=== PATIENT | male | born 1955 | race Caucasian/White ===

== ENCOUNTER 2016-12-22 11:11 | Inpatient (IN) | payer OTHER ==
[2016-12-22] VITALS (13 sets, daily range): BP systolic 123–146; BP diastolic 64–76; PULSE 84–99; RESP 17–20; TEMP 97.6–98.3; O2SAT 91–98
[~2016-12-22] VITALS: Ht 177.8 cm; Wt 114.4 kg
[~2016-12-22 11:11] MED LIST: 1-ME1LIQ PO; ASPI81TA82 PO; ATOR80TA PO; HYDR-2768 PO; LEVO.025 PO; OMEP20TA39 PO; POTA10TA48 PO; PRAZ5CAP16 PO; TAB-TAB PO; TRAZ100 PO; VENL-39 PO
[2016-12-22] MEDS ORDERED: ONDANSETRON HCL 4 MG/2 ML VIAL IV PUSH ONE (11:30)
[2016-12-22] MEDS: SODIUM CHLOR 0.9% 1000 ML INJ 1,000 ML IV SCH ×5 (11:36→22:14)
--- NOTE | 2016-12-22 11:53 | PD ---
HPI Chief Complaint: OD/ Ingestion Time Seen by Provider: 11:24 Travel History International Travel<30 days: No Contact w/Intl Traveler<30days: No Traveled to known affect area: No History of Present Illness HPI 61-year-old male was brought in by EMS after intentional overdose on trazodone. Patient states that he is feeling suicidal. Patient states that he took about 20 pills of trazodone 10 mg each this morning. Patient's unable to tell me how long before arriving to the ED that he took the medications. Patient complains of headache. Patient denies any chest pain or shortness of breath. Patient denies abdominal pain. Patient denies any focal weakness or numbness of extremity. Patient admitted to cocaine and amphetamine abuse occasionally. Patient states that he drinks alcohol occasionally. Patient states that he is on other medications however unable to tell me the names of the medications he is on at home. According to past medical record, patient was on aspirin, atorvastatin, HCTZ,Levothyroxine, omeprazole, potassium, prazosin, trazodone, venlafaxine. PFSH Past Medical History Hx Anticoagulant Therapy: Yes Cardiovascular Problems: Yes Diminished Hearing: No Social History Alcohol Use: Yes (WEEKLY) Tobacco Use: Yes (1.5) Substance Use: No Allergies-Medications (Allergen,Severity, Reaction): Coded Allergies: Codeine (Verified Adverse Reaction, Severe, Nausea/Vomiting, 12/22/16) Reported Meds & Prescriptions Reported Meds & Active Scripts Active Reported Effexor (Venlafaxine HCl) 75 Mg Tab 150 Mg PO DAILY Trazodone (Trazodone HCl) 100 Mg Tab 150 Mg PO HS Prazosin (Prazosin HCl) 5 Mg Cap 10 Mg PO HS Potassium Chloride ER (Potassium Chloride) 10 Meq Tab 10 Meq PO DAILY Omeprazole 20 Mg Tab 20 Mg PO DAILY Multi Vitamin (Multiple Vitamin) 1 Tab Tab 1 Tab PO DAILY Levothyroxine (Levothyroxine Sodium) 25 Mcg Tab 25 Mcg PO DAILY Atrovent HFA 12.9 GM Inh (Ipratropium [place]) 17 Mcg/Act Aer 2 Puff INH BID Hydrochlorothiazide 50 Mg Tab 50 Mg PO DAILY Clonidine (Clonidine HCl) 0.1 Mg Tab 0.1 Mg PO TID Symbicort Inh (Budesonide/Formoterol Fumarate) 160-4.5 Mcg/Act Aero 2 Puff INH BID Atorvastatin (Atorvastatin Calcium) 80 Mg Tab 80 Mg PO HS Aspirin EC Low Dose (Aspirin) 81 Mg Tabec 81 Mg PO DAILY Amlodipine (Amlodipine Besylate) 10 Mg Tab 10 Mg PO DAILY Review of Systems General / Constitutional: No: Fever Eyes: No: Visual changes HENT: Positive: Headaches Cardiovascular: No: Chest Pain or Discomfort Respiratory: No: Shortness of Breath Gastrointestinal: No: Abdominal Pain Genitourinary: No: Dysuria Musculoskeletal: No: Pain Skin: No Rash Neurologic: No: Weakness Psychiatric: No: Depression Endocrine: No: Polydipsia Hematologic/Lymphatic: No: Easy Bruising Physical Exam Narrative GENERAL: Well-nourished, well-developed patient. SKIN: Warm and dry. HEAD: Normocephalic. EYES: No scleral icterus. No injection or drainage. NECK: Supple, trachea midline. No JVD or lymphadenopathy. CARDIOVASCULAR: Regular rate and rhythm without murmurs, gallops, or rubs. RESPIRATORY: Breath sounds equal bilaterally. No accessory muscle use. GASTROINTESTINAL: Abdomen soft, non-tender, nondistended. MUSCULOSKELETAL: No cyanosis, or edema. BACK: Nontender without obvious deformity. No CVA tenderness. Neurologic exam: Patient is lethargic however answer questions appropriately. Patient moves all extremity well. No obvious focal neurological deficit. Data Data Last Documented VS Vital Signs Date Time Temp Pulse Resp B/P Pulse Ox O2 Delivery O2 Flow Rate FiO2 12/22/16 11:51 84 18 137/73 97 Nasal Cannula 3 12/22/16 11:18 97.8 Orders Electrocardiogram (12/22/16 ) Complete Blood Count With Diff (12/22/16 11:24) Comprehensive Metabolic Panel (12/22/16 11:24) Creatine Kinase (Cpk) (12/22/16 11:24) Troponin I (12/22/16 11:24) Prothrombin Time / Inr (Pt) (12/22/16 11:24) Act Partial Throm Time (Ptt) (12/22/16 11:24) Arterial Blood Gas (Abg) (12/22/16 11:24) Urinalysis - C+S If Indicated (12/22/16 11:24) Thyroid Stimulating Hormone (12/22/16 11:24) Chest, Single Ap (12/22/16 11:24) Iv Access Insert/Monitor (12/22/16 11:24) Ecg Monitoring (12/22/16 11:24) Oxygen Administration (12/22/16 11:24) Oximetry (12/22/16 11:24) Urinary Catheter Insert/Apply (12/22/16 11:24) Drug Screen, Random Urine (12/22/16 11:24) Alcohol (Ethanol) (12/22/16 11:24) Salicylates (Aspirin) (12/22/16 11:24) Tylenol (Acetaminophen) (12/22/16 11:24) Sodium Chlor 0.9% 1000 Ml Inj (Ns 1000 M (12/22/16 11:30) Ondansetron Inj (Zofran Inj) (12/22/16 11:30) Electrocardiogram (12/22/16 ) Labs Laboratory Tests Test 12/22/16 12/22/16 12/22/16 11:31 11:35 11:55 Salicylates Level 2.8 MG/DL White Blood Count 11.6 TH/MM3 Red Blood Count 4.91 MIL/MM3 Hemoglobin 15.8 GM/DL Hematocrit 45.0 % Mean Corpuscular Volume 91.6 FL Mean Corpuscular Hemoglobin 32.1 PG Mean Corpuscular Hemoglobin 35.0 % Concent Red Cell Distribution Width 13.2 % Platelet Count 224 TH/MM3 Mean Platelet Volume 8.3 FL Neutrophils (%) (Auto) 73.4 % Lymphocytes (%) (Auto) 19.1 % Monocytes (%) (Auto) 7.0 % Eosinophils (%) (Auto) 0.2 % Basophils (%) (Auto) 0.3 % Neutrophils # (Auto) 8.5 TH/MM3 Lymphocytes # (Auto) 2.2 TH/MM3 Monocytes # (Auto) 0.8 TH/MM3 Eosinophils # (Auto) 0.0 TH/MM3 Basophils # (Auto) 0.0 TH/MM3 CBC Comment DIFF FINAL Differential Comment Prothrombin Time 11.5 SEC Prothromb Time International 1.0 RATIO Ratio Activated Partial 26.4 SEC Thromboplast Time Urine Color YELLOW Urine Turbidity CLEAR Urine pH 5.5 Urine Specific Waves 1.013 Urine Protein 100 mg/dL Urine Glucose (UA) NEG mg/dL Urine Ketones NEG mg/dL Urine Occult Blood NEG Urine Nitrite NEG Urine Bilirubin NEG Urine Urobilinogen LESS THAN 2.0 MG/DL Urine Leukocyte Esterase NEG Urine WBC LESS THAN 1 /hpf Urine Amorphous Sediment OCC Urine Bacteria OCC /hpf Microscopic Urinalysis Comment CULT NOT INDICATED Sodium Level 141 MEQ/L Potassium Level 3.4 MEQ/L Chloride Level 106 MEQ/L Carbon Dioxide Level 25.3 MEQ/L Anion Gap 10 MEQ/L Blood Urea Nitrogen 16 MG/DL Creatinine 1.31 MG/DL Estimat Glomerular Filtration 56 ML/MIN Rate Random Glucose 139 MG/DL Calcium Level 8.3 MG/DL Total Bilirubin 0.7 MG/DL Aspartate Amino Transf 15 U/L (AST/SGOT) Alanine Aminotransferase 67 U/L (ALT/SGPT) Alkaline Phosphatase 57 U/L Total Creatine Kinase 52 U/L Troponin I LESS THAN 0.02 NG/ML Total Protein 7.0 GM/DL Albumin 3.8 GM/DL Thyroid Stimulating Hormone 3.470 uIU/ML 3rd Gen Urine Opiates Screen NEG Acetaminophen Level LESS THAN 2.0 MCG/ML Urine Barbiturates Screen NEG Urine Amphetamines Screen NEG Urine Benzodiazepines Screen NEG Urine Cocaine Screen POS Urine Cannabinoids Screen NEG Ethyl Alcohol Level LESS THAN 3 MG/DL Blood Gas Puncture Site RT RADIAL Blood Gas Patient Temperature 98.6 Blood Gas HCO3 23 mmol/L Blood Gas Base Excess -1.6 mmol/L Blood Gas Oxygen Saturation 83 % Arterial Blood pH 7.34 Arterial Blood Partial 44 mmHg Pressure CO2 Arterial Blood Partial 74 mmHG Pressure O2 Arterial Blood Oxygen Content 17.7 Vol % Arterial Blood 10.4 % Carboxyhemoglobin Arterial Blood Methemoglobin 2.2 % Blood Gas Hemoglobin 15.2 G/DL Oxygen Delivery Device NASAL CANNULA Blood Gas Liter Flow 2 L/M Blood Gas Ventilator Setting MDM Medical Decision Making Medical Screen Exam Complete: Yes Emergency Medical Condition: Yes Interpretation(s) 11:57 AM. EKG shows sinus rhythm nonspecific ST-T wave change. Last Impressions Chest X-Ray 12/22/16 1124 Signed Impressions: Service Date/Time: Thursday, December 22, 2016 11:47 - CONCLUSION: 1. Faint airspace disease in the medial aspect of both lung bases is nonspecific but could represent an element of aspiration.. 2. Borderline, well compensated heart. Pedrito Mcallister MD 1334 PM. CBC within normal limit. WBC 11.6. 73 neutrophil. Potassium 3.4. Creatinine 1.31. Glucose 139. Cardiac enzymes are normal. TSH normal. Salicylate and acetaminophen level normal. Urine drug screen positive for cocaine. Alcohol negative. Differential Diagnosis Differential diagnosis including suicidal, drug overdose. Narrative Course 61-year-old male was brought him EMS for suicidal and drug overdose. Patient overdose on trazodone. Normal saline solution 125 cc an hour. Castro catheter inserted. hospital monitor. 1346 PM. Poison control contacted. Advised symptomatically treatment. Diagnosis Primary Impression: Drug overdose, intentional Qualified Code: T50.902A - Drug overdose, intentional, initial encounter Additional Impressions: Suicidal behavior with attempted self-injury Substance abuse Admitting Information Admitting Physician Requests: Admit Adrien Patterson MD Dec 22, 2016 11:53
[2016-12-22 12:03] LABS: BLOOD GAS BASE EXCESS -1.6 mmol/L (-2-2); BLOOD GAS CARBOXYHEMOGLOBIN 10.4 % (0-4); BLOOD GAS HCO3 23 mmol/L (22-26); BLOOD GAS METHEMOGLOBIN 2.2 % (0-2); BLOOD GAS O2 HGB SATURATION 83 % (90-100); BLOOD GAS OXYGEN CONTENT 17.7 Vol % (12.0-20.0); BLOOD GAS PCO2 44 mmHg (38-42); BLOOD GAS PO2 74 mmHG (61-120); BLOOD GAS TOTAL HGB 15.2 G/DL (12.0-16.0); CRITICAL VALUE YES; OXYGEN DEVICE NASAL CANNULA; TEMP CORR TO 98.6
[2016-12-22 12:03] LABS: AUTOMATED NEUTROPHIL # 8.5 TH/MM3 (1.8-7.7); BASOPHIL % 0.3 % (0.0-2.0); EOSINOPHIL % 0.2 % (0.0-4.0); HEMO FLAGS DIFF FINAL; LYMPH % 19.1 % (9.0-44.0); LYMPHOCYTE # 2.2 TH/MM3 (1.0-4.8); MEAN CELL VOLUME 91.6 FL (80.0-100.0); MEAN CORPUSCULAR HEMOGLOBIN 32.1 PG (27.0-34.0); NEUT % 73.4 % (16.0-70.0); PLATELET COUNT 224 TH/MM3 (150-450); RED BLOOD COUNT 4.91 MIL/MM3 (4.50-5.90); RED CELL DISTRIBUTION WIDTH 13.2 % (11.6-17.2); WHITE BLOOD COUNT 11.6 TH/MM3 (4.0-11.0)
[2016-12-22 12:04] LABS: DRAW SITE RT RADIAL; LITER FLOW 2 L/M; NUMBER OF ARTERIAL PUNCTURES 1; STAT YES; ULNAR PULSE Y
[2016-12-22 12:07] LABS: BACTERIA, URINE OCC /hpf; BLOOD, URINE NEG (NEG); COMMENT (UR) CULT NOT INDICATED; CULTURE IF INDICATED CULT NOT INDICATED; GLUCOSE,URINE NEG (NEG); KETONE, URINE NEG (NEG); NITRITE,URINE NEG (NEG); PH, URINE 5.5 (5.0-8.5); URINE COLOR YELLOW (YELLW/STRAW)
[2016-12-22 12:11] LABS: APTT (PATIENT) 26.4 SEC (24.3-30.1); PROTHROMBIN TIME - PATIENT 11.5 SEC (9.8-11.6)
[2016-12-22 12:12] LABS: AMPHETAMINE, URINE NEG (NEG); BARBITURATES, URINE NEG (NEG); COCAINE, URINE POS (NEG)
--- NOTE | 2016-12-22 12:17 | RADRPT ---
EXAM DATE/TIME: 12/22/2016 11:47 [facility] COMPARISON: No previous studies available for comparison. INDICATIONS : Short of breath, lethargic MEDICAL HISTORY : unobtainable SURGICAL HISTORY : unobtainable ENCOUNTER: Initial ACUITY: 1 day PAIN SCORE: Non-responsive. LOCATION: Bilateral chest FINDINGS: A single view of the chest demonstrates faint patchy airspace process medially in both bases. Finding s are nonspecific but could represent some aspiration. No associated effusions. Heart size is borderl ine prominent a well compensated. Dextroscoliosis of the dorsal spine with minimal associated degener ative changes. CONCLUSION: 1. Faint airspace disease in the medial aspect of both lung bases is nonspecific but could represent an element of aspiration.. 2. Borderline, well compensated heart. Pedrito Mcallister MD on December 22, 2016 at 12:11 Board Certified Radiologist. This report was verified electronically.
[2016-12-22 12:18] LABS: ACETAMINOPHEN LESS THAN 2.0 MCG/ML (10.0-30.0); ALT (GPT) 67 U/L (12-78); ANION GAP 10 MEQ/L (5-15); AST (GOT) 15 U/L (15-37); BICARBONATE 25.3 MEQ/L (21.0-32.0); BLOOD UREA NITROGEN 16 MG/DL (7-18); CHLORIDE 106 MEQ/L (98-107); GLOMERULAR FILTRATION RATE 56 ML/MIN (>89); POTASSIUM 3.4 MEQ/L (3.5-5.1); SODIUM (NA) 141 MEQ/L (136-145)
[2016-12-22 12:27] LABS: ALKALINE PHOSPHATASE 57 U/L (45-117); TOTAL BILIRUBIN ADULT 0.7 MG/DL (0.2-1.0)
[2016-12-22 12:28] LABS: CREATINE KINASE 52 U/L (39-308)
[2016-12-22] MEDS ORDERED: HYDR50TA3 PO (12:37)
[2016-12-22] MEDS ORDERED: PRAZ5CAP PO (12:37)
[2016-12-22] MEDS ORDERED: OMEP20TA PO (12:37)
[2016-12-22] MEDS ORDERED: IPRA17I INH (12:37)
[2016-12-22] MEDS ORDERED: LEVO25TA4 PO (12:37)
[2016-12-22] MEDS ORDERED: AMLO10TA2 PO (12:37)
[2016-12-22] MEDS ORDERED: TRAZ100T4 PO (12:37)
[2016-12-22] MEDS ORDERED: SYMB160A INH (12:37)
[2016-12-22] MEDS ORDERED: VENL75TA PO (12:37)
[2016-12-22] MEDS ORDERED: CLON0.1T PO (12:37)
[2016-12-22] MEDS ORDERED: POTA10TA2 PO (12:37)
[2016-12-22] MEDS ORDERED: ATOR1TAB18 PO (12:37)
[2016-12-22] MEDS ORDERED: MULT-135 PO (12:37)
[2016-12-22] MEDS ORDERED: ASPI81TA2 PO (12:37)
[2016-12-22] MEDS ORDERED: ONDANSETRON HCL 4 MG/2 ML VIAL IVP PRN (14:30)
[2016-12-22] MEDS ORDERED: ACETAMINOPHEN 325 MG TAB PO PRN ×3 (14:30→14:45)
[2016-12-22] MEDS ORDERED: SENNOSIDES 8.6 MG TAB PO PRN (14:30)
[2016-12-22] MEDS ORDERED: VANCOMYCIN INJ 1,000 MG in SODIUM CHLOR 0.9% 250 ML INJ 250 ML IV ONE (14:30)
[2016-12-22] MEDS ORDERED: BISACODYL 10 MG SUPP PR PRN (14:30)
[2016-12-22] MEDS ORDERED: RESP: ALBUTEROL 0.63 MG/3 ML NEB (PRN) NEB (14:30)
[2016-12-22] MEDS ORDERED: NALOXONE HCL 0.4 MG/ML AMP IV PRN (14:30)
[2016-12-22] MEDS ORDERED: SODIUM CHLORIDE 0.9% FLUSH 5 ML FLUSH FLUSH PRN (14:30)
[2016-12-22] MEDS ORDERED: cloNIDine HCL 0.1 MG TAB PO PRN (14:30)
[2016-12-22] MEDS ORDERED: SODIUM CHLORIDE 0.9% FLUSH 5 ML FLUSH IVF PRN (14:45)
[2016-12-22] MEDS ORDERED: ONDANSETRON HCL 4 MG/2 ML VIAL IV PRN (14:45)
[2016-12-22] MEDS ORDERED: POTASSIUM CHLORIDE 10 MEQ CONTROLLED RELEASE TAB PO ONE (15:00)
[2016-12-22] MEDS: DOCUSATE SODIUM 100 MG CAP PO SCH ×2 (15:06→23:45)
[2016-12-22] MEDS: HEPARIN SODIUM - SQ 10,000 UNITS/ML VIAL SQ SCH (15:06)
[2016-12-22] MEDS: RESP: ALBUTEROL 2.5 MG/IPRATROPIUM 0.5 MG NEB (SCH) NEB ×2 (15:26→20:00)
[2016-12-22] MEDS: methylPREDNISolone SOD SUCC 40 MG/1 ML VIAL IV PUSH SCH ×2 (16:08→23:20)
--- NOTE | 2016-12-22 16:37 | HHI.HP ---
HPI Service [facility] Primary Care Physician [facility] Admission Diagnosis drug overdose. suicidal Diagnoses: Chief Complaint: Drug Overdose, SOB Travel History International Travel<30 Days: No Contact w/Intl Traveler <30 Da: No Traveled to Known Affected Are: No History of Present Illness Patient is a 61-year-old white male with primary medical history of PTSD, COPD, HTN, HLD, hypothyroidism who came in under Zepeda act after he intentionally took 20 pills of trazodone 100 mg this morning. Complaints of shortness of breath, exacerbated with exertion. Reports history of COPD with use of inhalers at home including Symbicort, Advair. O2 sat on the monitor 89-90% on room air. Otherwise, denies pain and discomfort. Denies chest pain, palpitations, headaches, dizziness. Denies fevers, chills, n/v/d. Denies suicidal ideation, reports wanting to get better. Chest x-ray showed faint airspace disease in the medial aspect of both lung bases is nonspecific but could represent an element of aspiration. Borderline, well compensated heart. WBC 11.6. Patient was given Vanco 1 g in the ED. Review of Systems Except as stated in HPI: all other systems reviewed are Neg Past Family Social History Past Medical History PTSD COPD HTN HLD Hypothyroidism Past Surgical History Hernia repair Reported Medications Effexor (Venlafaxine HCl) 75 Mg Tab 150 Mg PO DAILY Trazodone (Trazodone HCl) 100 Mg Tab 150 Mg PO HS Prazosin (Prazosin HCl) 5 Mg Cap 10 Mg PO HS Potassium Chloride ER (Potassium Chloride) 10 Meq Tab 10 Meq PO DAILY Omeprazole 20 Mg Tab 20 Mg PO DAILY Multi Vitamin (Multiple Vitamin) 1 Tab Tab 1 Tab PO DAILY Levothyroxine (Levothyroxine Sodium) 25 Mcg Tab 25 Mcg PO DAILY Atrovent HFA 12.9 GM Inh (Ipratropium [place]) 17 Mcg/Act Aer 2 Puff INH BID Hydrochlorothiazide 50 Mg Tab 50 Mg PO DAILY Clonidine (Clonidine HCl) 0.1 Mg Tab 0.1 Mg PO TID Symbicort Inh (Budesonide/Formoterol Fumarate) 160-4.5 Mcg/Act Aero 2 Puff INH BID Atorvastatin (Atorvastatin Calcium) 80 Mg Tab 80 Mg PO HS Aspirin EC Low Dose (Aspirin) 81 Mg Tabec 81 Mg PO DAILY Amlodipine (Amlodipine Besylate) 10 Mg Tab 10 Mg PO DAILY Allergies: Coded Allergies: Codeine (Verified Adverse Reaction, Severe, Nausea/Vomiting, 12/22/16) Active Ordered Medications Current Medications Medications (Trade) Dose Ordered Sig/Anshu Route Start Time Stop Time Status Last Admin Sodium Chloride 1,000 ml @ 125 mls/hr Q8H IV 12/22/16 11:30 12/22/16 11:36 (NS 1000 ml Inj) 1,000 ml @ 100 mls/hr Q10H IV 12/22/16 15:00 12/22/16 15:05 (NS Flush) 2 ml UNSCH PRN FLUSH 12/22/16 14:30 (NS Flush) 2 ml BID FLUSH 12/22/16 21:00 (Tylenol) 650 mg Q4H PRN PO 12/22/16 14:30 (Zofran Inj) 4 mg Q6H PRN IVP 12/22/16 14:30 (Dulcolax Supp) 10 mg DAILY PRN RI 12/22/16 14:30 (Colace) 100 mg Q12H PO 12/22/16 15:00 12/22/16 15:06 (Senokot) 17.2 mg Q12H PRN PO 12/22/16 14:30 (Heparin Inj) 5,000 units Q12H SQ 12/22/16 15:00 12/22/16 15:06 (Tylenol) 650 mg Q6H PRN PO 12/22/16 14:30 (Narcan Inj) 0.4 mg UNSCH PRN IV 12/22/16 14:30 (Ecotrin Ec) 81 mg DAILY PO 12/23/16 09:00 (Lipitor) 80 mg HS PO 12/22/16 21:00 (Symbicort 160-4.5 Inh) 2 puff BID INH 12/22/16 21:00 (Catapres) 0.1 mg TID PO 12/22/16 18:00 (Synthroid) 25 mcg DAILY@06 PO 12/23/16 06:00 (Protonix) 20 mg DAILY PO 12/23/16 09:00 (Catapres) 0.1 mg Q6H PRN PO 12/22/16 14:30 (SoluMEDROL INJ) 40 mg Q8H IV PUSH 12/22/16 16:00 Family History Lung cancer and lymphoma Social History Alcohol use weekly. Tobacco use half a pack a day Substance abuse cocaine, amphetamine when he feels "depressed" Physical Exam Vital Signs Vital Signs Date Time Temp Pulse Resp B/P Pulse Ox O2 Delivery O2 Flow Rate FiO2 12/22/16 15:28 94 12/22/16 15:00 98.0 89 18 135/76 97 Nasal Cannula 3 12/22/16 14:00 98.0 92 18 141/71 98 Nasal Cannula 3 12/22/16 13:00 94 18 133/67 97 Nasal Cannula 3 12/22/16 11:51 84 18 137/73 97 Nasal Cannula 3 12/22/16 11:26 97 Nasal Cannula 3 12/22/16 11:26 20 97 Nasal Cannula 3 12/22/16 11:18 84 20 97 Nasal Cannula 3 12/22/16 11:18 97.8 96 20 146/65 96 Physical Exam GENERAL: This is a well-nourished, well-developed patient, in no apparent distress, mildly short of breath. SKIN: No rashes, ecchymoses or lesions. Cool and dry. HEAD: Atraumatic. Normocephalic. No temporal or scalp tenderness. EYES: Pupils equal round and reactive. Extraocular motions intact. No scleral icterus. No injection or drainage. ENT: Nose without bleeding. Throat without erythema. Uvula midline. Airway patent. NECK: Trachea midline. No JVD or lymphadenopathy. Supple, nontender, no meningeal signs. CARDIOVASCULAR: Regular rate and rhythm without murmurs, gallops, or rubs. RESPIRATORY: Diminished bases. No wheezes, rales, or rhonchi. Notable shortness of breath with increased conversation length. GASTROINTESTINAL: Abdomen soft, non-tender, nondistended. No hepato-splenomegaly , or palpable masses. No guarding. MUSCULOSKELETAL: Extremities without clubbing, cyanosis, or edema. No joint tenderness, effusion, or edema noted. No calf tenderness. Negative Homans sign bilaterally. NEUROLOGICAL: Awake and alert. Oriented 3. Motor and sensory grossly within normal limits. No focal neuro deficit. Normal speech. Laboratory Laboratory Tests Test 12/22/16 12/22/16 12/22/16 11:31 11:35 11:55 Salicylates Level 2.8 White Blood Count 11.6 Red Blood Count 4.91 Hemoglobin 15.8 Hematocrit 45.0 Mean Corpuscular Volume 91.6 Mean Corpuscular Hemoglobin 32.1 Mean Corpuscular Hemoglobin 35.0 Concent Red Cell Distribution Width 13.2 Platelet Count 224 Mean Platelet Volume 8.3 Neutrophils (%) (Auto) 73.4 Lymphocytes (%) (Auto) 19.1 Monocytes (%) (Auto) 7.0 Eosinophils (%) (Auto) 0.2 Basophils (%) (Auto) 0.3 Neutrophils # (Auto) 8.5 Lymphocytes # (Auto) 2.2 Monocytes # (Auto) 0.8 Eosinophils # (Auto) 0.0 Basophils # (Auto) 0.0 CBC Comment DIFF FINAL Differential Comment Prothrombin Time 11.5 Prothromb Time International 1.0 Ratio Activated Partial 26.4 Thromboplast Time Urine Color YELLOW Urine Turbidity CLEAR Urine pH 5.5 Urine Specific [place] 1.013 Urine Protein 100 Urine Glucose (UA) NEG Urine Ketones NEG Urine Occult Blood NEG Urine Nitrite NEG Urine Bilirubin NEG Urine Urobilinogen LESS THAN 2.0 Urine Leukocyte Esterase NEG Urine WBC LESS THAN 1 Urine Amorphous Sediment OCC Urine Bacteria OCC Microscopic Urinalysis Comment CULT NOT INDICATED Sodium Level 141 Potassium Level 3.4 Chloride Level 106 Carbon Dioxide Level 25.3 Anion Gap 10 Blood Urea Nitrogen 16 Creatinine 1.31 Estimat Glomerular Filtration 56 Rate Random Glucose 139 Calcium Level 8.3 Magnesium Level 2.1 Total Bilirubin 0.7 Aspartate Amino Transf 15 (AST/SGOT) Alanine Aminotransferase 67 (ALT/SGPT) Alkaline Phosphatase 57 Total Creatine Kinase 52 Troponin I LESS THAN 0.02 Total Protein 7.0 Albumin 3.8 Thyroid Stimulating Hormone 3.470 3rd Gen Urine Opiates Screen NEG Acetaminophen Level LESS THAN 2.0 Urine Barbiturates Screen NEG Urine Amphetamines Screen NEG Urine Benzodiazepines Screen NEG Urine Cocaine Screen POS Urine Cannabinoids Screen NEG Ethyl Alcohol Level LESS THAN 3 Blood Gas Puncture Site RT RADIAL Blood Gas Patient Temperature 98.6 Blood Gas HCO3 23 Blood Gas Base Excess -1.6 Blood Gas Oxygen Saturation 83 Arterial Blood pH 7.34 Arterial Blood Partial 44 Pressure CO2 Arterial Blood Partial 74 Pressure O2 Arterial Blood Oxygen Content 17.7 Arterial Blood 10.4 Carboxyhemoglobin Arterial Blood Methemoglobin 2.2 Blood Gas Hemoglobin 15.2 Oxygen Delivery Device NASAL CANNULA Blood Gas Liter Flow 2 Blood Gas Ventilator Setting Result Diagram: 12/22/16 1135 12/22/16 1135 Imaging Last Impressions Chest X-Ray 12/22/16 1124 Signed Impressions: Service Date/Time: Thursday, December 22, 2016 11:47 - CONCLUSION: 1. Faint airspace disease in the medial aspect of both lung bases is nonspecific but could represent an element of aspiration.. 2. Borderline, well compensated heart. Pedrito Mcallister MD Assessment and Plan Problem List: (1) Suicidal behavior with attempted self-injury ICD Code: T14.91 Status: Acute (2) Drug overdose, intentional ICD Code: T50.902A Status: Acute (3) Substance abuse ICD Code: F19.10 Status: Chronic (4) COPD exacerbation ICD Code: J44.1 Status: Acute (5) HTN (hypertension) ICD Code: I10 Status: Chronic (6) Hypothyroidism ICD Code: E03.9 Status: Chronic Assessment and Plan Patient is a 61-year-old white male with who came in under Zepeda act after he intentionally took 20 pills of trazodone 100 mg this morning. Complaints of shortness of breath, exacerbated with exertion. Reports history of COPD with use of inhalers at home including Symbicort, Advair. O2 sat on the monitor 89- 90% on room air. Overdose, trazodone 100 mg - continue IV fluids - Poison control notified by ED - Monitor EKG. First EKG reviewed by me sinus rhythm normal, QT 459, repeat EKG reviewed by me sinus rhythm, QT 420, no significant change from previous EKG , no ST segment changes noted - Consult psych - Will admit to ICU for close monitoring of mural and cardiovascular status, medication can cause QT prolongation and other side effects. Seizure precautions COPD exacerbation with hypoxia - received 1 g vancomycin in the ED, elevated WBC 11.6 - Chest x-ray showed faint airspace disease in the medial aspect of both lung bases is nonspecific but could represent an element of aspiration. Borderline, well compensated heart. - Levaquin 750 daily - DuoNeb's 4 times a day and when necessary - Solu-Medrol 40 mg every 8 hours - IV fluids 100 ML's NS - Symbicort 1604.5 twice a day HLD HTN - continue home meds clonidine 3 times a day, ASA 81 mg, atorvastatin 80mg - Monitor BP trend Hypothyroidism - continue with levothyroxine 25 g DVT prop heparin subcutaneous Written by Beny Enriquez, acting as scribe for Dr. Ramirez on 12/22/16 at 15: 44. The documentation accurately reflects the work performed [id number] by me on at 17:32. Code Status Full code Discussed Condition With Patient, nursing, ED attending Physician Certification 2 Midnight Certification Type: Admission for Inpatient Services Order for Inpatient Services The services are ordered in accordance with Medicare regulations or non- Medicare payer requirements, as applicable. In the case of services not specified as inpatient-only, they are appropriately provided as inpatient services in accordance with the 2-midnight benchmark. Estimated LOS (days): 2 days is the estimated time the patient will need to remain in the hospital, assuming treatment plan goals are met and no additional complications. Post-Hospital Plan: Not yet determined Problem Qualifiers (1) Drug overdose, intentional: Qualified Code: T50.902A - Drug overdose, intentional, initial encounter Beny Irby Dec 22, 2016 16:37 Raymundo Ramirez MD Dec 22, 2016 17:33
[2016-12-22] MEDS: cloNIDine HCL 0.1 MG TAB PO SCH (17:24)
[2016-12-22] MEDS: SODIUM CHLORIDE 0.9% FLUSH 5 ML FLUSH FLUSH SCH (19:36)
[2016-12-22] MEDS ORDERED: BUDESONIDE-FORMOTEROL 160/4.5 MCG INHALER INH SCH (21:00)
[2016-12-22] MEDS ORDERED: SODIUM CHLORIDE 0.9% FLUSH 5 ML FLUSH IVF SCH (21:00)
[2016-12-22] MEDS ORDERED: ATORVASTATIN 80 MG TAB PO SCH (21:00)
[2016-12-23] VITALS (9 sets, daily range): BP systolic 116–127; BP diastolic 62–68; PULSE 80–89; RESP 11–19; TEMP 97.5–98.9; O2SAT 91–93
[2016-12-23] MEDS: HEPARIN SODIUM - SQ 10,000 UNITS/ML VIAL SQ SCH (01:28)
[2016-12-23] MEDS ORDERED: LEVOTHYROXINE SODIUM 25 MCG TAB PO SCH (06:00)
[2016-12-23 07:56] LABS: AUTOMATED NEUTROPHIL # 10.1 TH/MM3 (1.8-7.7); HEMATOCRIT 42.7 % (39.0-51.0); HEMO FLAGS DIFF FINAL; LYMPH % 9.9 % (9.0-44.0); LYMPHOCYTE # 1.2 TH/MM3 (1.0-4.8); MEAN CELL VOLUME 91.9 FL (80.0-100.0); MEAN CORPUSCULAR HEMOGLOBIN 31.4 PG (27.0-34.0); MEAN CORPUSCULAR HGB CONC 34.2 % (32.0-36.0); MONO % 3.7 % (0.0-8.0); NEUT % 86.4 % (16.0-70.0); PLATELET COUNT 214 TH/MM3 (150-450); RED BLOOD COUNT 4.64 MIL/MM3 (4.50-5.90); WHITE BLOOD COUNT 11.7 TH/MM3 (4.0-11.0)
[2016-12-23] MEDS: RESP: ALBUTEROL 2.5 MG/IPRATROPIUM 0.5 MG NEB (SCH) NEB ×2 (08:00→10:09)
[2016-12-23 08:15] LABS: MAGNESIUM 2.3 MG/DL (1.5-2.5); POTASSIUM 4.7 MEQ/L (3.5-5.1)
[2016-12-23] MEDS ORDERED: ASPIRIN EC 81 MG TABEC PO SCH (09:00)
[2016-12-23] MEDS ORDERED: PANTOPRAZOLE SOD 20 MG DELAYED RELEASE TAB PO SCH (09:00)
[2016-12-23] MEDS ORDERED: LEVOFLOXACIN 750 MG TAB PO SCH (09:00)
--- NOTE | 2016-12-23 09:24 | PD.CONS ---
Provisional Diagnosis Admission Date Dec 22, 2016 at 14:32 [place]. PTSD F 43.10, cocaine abuse F 14.10 History of Present Illness Service Psychiatry Consult Requested By Attending [place] Reason for Consult Duane haynes Primary Care Physician [facility] HPI Patient is a 61-year-old white male running who comes here under Zepeda act by the [place] [employer] dated 12/22/16 at 10:58 AM stating Stevo Tay ingested trazodone 100 mg pills (which is a tranquilizer pill) Mr. Tay stated to law enforcement that he ingested the pills because he did not want to live anymore. Mr. Tay if not receive care or treatment there is a substantial likelihood that he will cause serious bodily harm to himself. Mr. Tay is a disabled with PTSD Mr. Tay stated that he took the whole bottle of trazodone. Patient seen and screened in the ED urine toxicology positive for cocaine. It appears TCA's were not screened for. At the present time patient resting quietly in his bed in the intensive care unit nurse Mabel present throughout the session. Patient is alert oriented calm cooperative me heavyset male appears about his stated age. He stated that he is running but he did see combat. That he does have PTSD but refused to discuss the events that led to his PTSD. He is being seen by a psychiatrist at the [facility] here in [facility]. He states they does have very disturbing nightmares. He had a nightmare last night the led to the overdose. At this time patient continues markedly suicidal stating he will take his suicide pill if offered to him. Patient states he lives by himself has no significant friends and socializing he has no pets. There is some extended family family local but it appears to be a very loose relationship with them. He states his cocaine use is sporadic and infrequent. Of interest patient was hospitalized here in July 2016 he was seen in consultation by Dr. Bone on 07/27 the dictated [address] cocaine was [address] involved[address] Dr. Steve is to Zepeda act and gave the okay for discharge home when he was medically cleared. Patient also has a history of prior suicide attempts prior psychiatric hospitalizations in the Over the present time the patient's continued suicidality of feel we should continue the Zepeda act though the Zepeda act is on hold until the patient is medically cleared. We will then consider discharge to either for yeast or [facility] depending on his clinical status. Thanks for consult Dr. Steve will be available to follow during the week Review of Systems Except as stated in HPI: all other systems reviewed are Neg Past Family Social History Coded Allergies: Codeine (Verified Adverse Reaction, Severe, Nausea/Vomiting, 12/22/16) Past Medical History C [place] assessment Reported Medications Venlafaxine (Effexor)75 Mg [id number] Mg PO DAILY #120 TAB Ref 0 12/22/16 Trazodone 100 Mg [id number] Mg PO HS #30 TAB Ref 0 12/22/16 Prazosin 5 Mg Cap10 Mg PO HS #60 CAP Ref 0 12/22/16 Potassium Chloride ER 10 Meq Tab10 Meq PO DAILY #30 TAB Ref 0 12/22/16 Omeprazole 20 Mg Tab20 Mg PO DAILY #30 TAB Ref 0 12/22/16 Multiple Vitamin (Multi Vitamin)1 Tab Tab1 Tab PO DAILY 12/22/16 Levothyroxine 25 Mcg Tab25 Mcg PO DAILY #30 TAB Ref 0 12/22/16 Ipratropium HFA 12.9 GM Inh (Atrovent HFA 12.9 GM Inh)17 Mcg/Act Aer2 Puff INH BID #1 INHALER Ref 0 12/22/16 Hydrochlorothiazide 50 Mg Tab50 Mg PO DAILY #60 TAB Ref 0 12/22/16 Clonidine 0.1 Mg Tab0.1 Mg PO TID #60 TAB Ref 0 12/22/16 Budesonide-Formoterol Inh (Symbicort Inh)160-4.5 Mcg/Act Aero2 Puff INH BID #1 INHALER Ref 0 12/22/16 Atorvastatin 80 Mg Tab80 Mg PO HS #30 TAB Ref 0 12/22/[address] (Aspirin EC Low Dose)81 Mg Tabec81 Mg PO DAILY 12/22/16 Amlodipine 10 Mg Tab10 Mg PO DAILY #30 TAB Ref 0 12/22/16 Current Medications Medications (Trade) Dose Ordered Sig/Anshu Route Start Time Stop Time Status Last Admin (NS Flush) 2 ml UNSCH PRN FLUSH 12/22/16 14:30 (NS Flush) 2 ml BID FLUSH 12/22/16 21:00 12/22/16 19:36 (Tylenol) 650 mg Q4H PRN PO 2/17/17 14:30 (Zofran Inj) 4 mg Q6H PRN IVP 12/22/16 14:30 (Dulcolax Supp) 10 mg DAILY PRN PA 12/22/16 14:30 (Colace) 100 mg Q12H PO 12/22/16 15:00 12/22/16 15:06 (Senokot) 17.2 mg Q12H PRN PO 12/22/16 14:30 (Heparin Inj) 5,000 units Q12H SQ 12/22/16 15:00 12/23/16 01:28 (Tylenol) 650 mg Q6H PRN PO 12/22/16 14:30 (Narcan Inj) 0.4 mg UNSCH PRN IV 12/22/16 14:30 (Ecotrin Ec) 81 mg DAILY PO 12/23/16 09:00 (Lipitor) 80 mg HS PO 12/22/16 21:00 (Symbicort 160-4.5 Inh) 2 puff BID INH 12/22/16 21:00 12/22/16 19:36 (Catapres) 0.1 mg TID PO 12/22/16 18:00 (Synthroid) 25 mcg DAILY@06 PO 12/23/16 06:00 12/23/16 05:15 (Protonix) 20 mg DAILY PO 12/23/16 09:00 (Catapres) 0.1 mg Q6H PRN PO 12/22/16 14:30 (SoluMEDROL INJ) 40 mg Q8H IV PUSH 12/22/16 16:00 12/22/16 23:20 (Levaquin) 750 mg DAILY PO 12/23/16 09:00 Family History Patient denies mental health issues Social History Patient lives by himself has no pets and minimal socializing Patient's Strengths (min. 2) Patient verbal cooperative [facility] Physical Exam Please see attending assessments Vital Signs Vital Signs Date Time Temp Pulse Resp B/P Pulse Ox O2 Delivery O2 Flow Rate FiO2 12/23/16 08:00 87 12/23/16 04:00 98.7 17 117/64 91 12/22/16 21:29 Nasal Cannula 2.00 I/O 12/22/16 12/22/16 12/23/16 08:00 16:00 00:00 Intake Total 975 ml Output Total 475 ml Balance 500 ml Mental Status Examination Alert oriented stockily built white male playing, his been his calm cooperative me is somewhat guarded when questioned about events related to his PTSD or service Appearance Clean neatly Speech: Unremarkable Orientation: x3 Memory: Unremarkable Thought Process: Logical, Linear Thought Content: Unremarkable Hallucination Type: None Attention and Concentration: Other (fair) Suicidal Ideation: Yes (patient would take suicide pill at this time) Previous Suicide Attempts: Yes Homicidal Ideation: No Previous Homicide Attempts: No Insight: Fair Judgement: Poor Affect: Other (decreased range and intensity) Mood: Sad Motor Activity: Normal gait Assessment & Plan Problem List: (1) PTSD (post-traumatic stress disorder) ICD Code: F43.10 (2) Cocaine abuse ICD Code: F14.10 Assessment & Plan Estimated LOS: days. At this time patient meets criteria under the Zepeda act for further treatment. We will continue to assess patient. Per the med reconciliation with recommend restarting his antidepressant. Patient continues the suicidal intent consider transfer to psychiatric unit once patient is medically cleared. Excellent consul will continue to follow, either myself or Dr. Steve Discharge Planning To be determined Robby Ott MD Dec 23, 2016 09:24
[2016-12-23] MEDS: methylPREDNISolone SOD SUCC 40 MG/1 ML VIAL IV PUSH SCH (09:27)
[2016-12-23] MEDS: cloNIDine HCL 0.1 MG TAB PO SCH (09:28)
[2016-12-23] MEDS: SODIUM CHLORIDE 0.9% FLUSH 5 ML FLUSH FLUSH SCH (09:28)
--- NOTE | 2016-12-23 12:14 | HHI.PR ---
Subjective Remarks Follow-up COPD and trazodone toxicity. Patient has no complaints improved shortness of breath. Tolerating room air. Discussed with RN. Objective Vitals Vital Signs Date Time Temp Pulse Resp B/P Pulse Ox O2 Delivery O2 Flow Rate FiO2 12/23/16 10:00 80 12/23/16 09:57 92 12/23/16 08:00 97.5 82 11 125/68 92 12/23/16 08:00 87 12/23/16 06:00 85 12/23/16 04:00 85 12/23/16 04:00 98.7 85 17 117/64 91 12/23/16 02:00 87 12/23/16 00:00 89 12/23/16 00:00 98.9 89 15 116/62 93 12/22/16 22:00 97 12/22/16 21:29 98 Nasal Cannula 2.00 12/22/16 20:00 98.3 91 17 123/64 93 12/22/16 20:00 97.6 91 17 123/64 95 12/22/16 20:00 93 12/22/16 18:00 99 12/22/16 18:00 97.6 86 17 134/66 91 12/22/16 17:02 94 18 128/67 98 Nasal Cannula 3 12/22/16 16:00 97.8 94 18 141/67 98 Nasal Cannula 3 12/22/16 15:28 94 12/22/16 15:00 98.0 89 18 135/76 97 Nasal Cannula 3 12/22/16 14:00 98.0 92 18 141/71 98 Nasal Cannula 3 12/22/16 13:00 94 18 133/67 97 Nasal Cannula 3 I/O 12/22/16 12/22/16 12/22/16 12/23/16 12/23/16 12/23/16 07:00 15:00 23:00 07:00 15:00 23:00 Intake Total 975 ml 925 ml Output Total 475 ml 550 ml Balance 500 ml 375 ml Intake IV Total 975 ml 925 ml Output Urine Total 475 ml 550 ml # Voids 2 2 Result Diagram: 12/23/16 0656 12/23/16 0656 Imaging Last Impressions Chest X-Ray 12/22/16 1124 Signed Impressions: Service Date/Time: Thursday, December 22, 2016 11:47 - CONCLUSION: 1. Faint airspace disease in the medial aspect of both lung bases is nonspecific but could represent an element of aspiration.. 2. Borderline, well compensated heart. Pedrito Mcallister MD Objective Remarks GENERAL: This is a well-nourished, well-developed patient, in no apparent distress, SKIN: No rashes, ecchymoses or lesions. Cool and dry. HEAD: Atraumatic. Normocephalic. No temporal or scalp tenderness. EYES: Pupils equal round and reactive. Extraocular motions intact. No scleral icterus. No injection or drainage. ENT: Nose without bleeding. Throat without erythema. Uvula midline. Airway patent. NECK: Trachea midline. No JVD or lymphadenopathy. Supple, nontender, no meningeal signs. CARDIOVASCULAR: Regular rate and rhythm without murmurs, gallops, or rubs. RESPIRATORY: Diminished bases. No wheezes, rales, or rhonchi. Notable shortness of breath with increased conversation length. GASTROINTESTINAL: Abdomen soft, non-tender, nondistended. No guarding. MUSCULOSKELETAL: Extremities without clubbing, cyanosis, or edema. No joint tenderness, effusion, or edema noted. No calf tenderness. Negative Homans sign bilaterally. NEUROLOGICAL: Awake and alert. Oriented 3. Motor and sensory grossly within normal limits. No focal neuro deficit. Normal speech. Still depressed Procedures none A/P Problem List: (1) Suicidal behavior with attempted self-injury ICD Code: T14.91 Status: Acute (2) Drug overdose, intentional ICD Code: T50.902A Status: Acute (3) Substance abuse ICD Code: F19.10 Status: Chronic (4) COPD exacerbation ICD Code: J44.1 Status: Acute (5) HTN (hypertension) ICD Code: I10 Status: Chronic (6) Hypothyroidism ICD Code: E03.9 Status: Chronic Assessment and Plan Patient is a 61-year-old white male with who came in under Zepeda act after he intentionally took 20 pills of trazodone 100 mg this morning. Complaints of shortness of breath, exacerbated with exertion. Reports history of COPD with use of inhalers at home including Symbicort, Advair. O2 sat on the monitor 89- 90% on room air. Overdose, trazodone 100 mg -he is hemodynamically and neurologically stable. Discontinue IV fluids - Poison control notified by ED - Monitor EKG. First EKG reviewed by me sinus rhythm normal, QT 459, repeat EKG reviewed by me sinus rhythm, QT 420, no significant change from previous EKG , no ST segment changes noted - Consulted psych who will accept patient in the psych unit - Seizure precautions. Transfer out of ICU COPD exacerbation with hypoxia - received 1 g vancomycin in the ED, elevated WBC 11.6. Improved - Chest x-ray showed faint airspace disease in the medial aspect of both lung bases is nonspecific but could represent an element of aspiration. Borderline, well compensated heart. - Levaquin 750 daily - DuoNeb's 4 times a day and when necessary - Solu-Medrol 40 mg every 8 hours will be discontinued and start by mouth prednisone - IV fluids 100 ML's NS will be discontinued - Symbicort 1604.5 twice a day HLD HTN - continue home meds clonidine 3 times a day, ASA 81 mg, atorvastatin 80mg - Monitor BP trend. Continue to hold prazosin, Norvasc, hydrochlorothiazide and potassium Hypothyroidism - continue with levothyroxine 25 g DVT prop heparin subcutaneous Discharge Planning Discharge patient to psychiatry unit Condition on discharge: Improved Regular Diet as tolerated Ad Jennifer activity, no driving Rx written: Levaquin, DuoNeb nebs and prednisone Follow-up with primary care physician in one week Problem Qualifiers (1) Drug overdose, intentional: Qualified Code: T50.902A - Drug overdose, intentional, initial encounter Raymundo Ramirez MD Dec 23, 2016 12:14
[2016-12-23] MEDS ORDERED: LEVA750T PO (12:25)
[2016-12-23] MEDS ORDERED: IPRASOL NEB (12:25)
--- NOTE | 2016-12-23 12:26 | HHI.DCPOC ---
Discharge Care Plan Diagnosis: (1) Suicidal behavior with attempted self-injury (2) COPD exacerbation Your Health Problems Are: Difficulty with ADL Exercise Tolerance Goals to Promote Your Health * To prevent worsening of your condition and complications * To maintain your health at the optimal level Directions to Meet Your Goals Take your medications as prescribed Follow your dietary instruction Follow activity as directed Keep your appointments as scheduled Take your immunizations and boosters as scheduled If your symptoms worsen call your PCP, if no PCP go to Urgent Care Center or Emergency Room Smoking is Dangerous to Your Health. Avoid second hand smoke Call the 24-hour hour crisis hotline for domestic abuse at Raymundo Ramirez MD Dec 23, 2016 12:26
[2016-12-23] MEDS ORDERED: PRED20 PO (12:28)
[2016-12-23] MEDS ORDERED: predniSONE 20 MG TAB PO SCH (12:30)
--- NOTE | 2016-12-23 16:29 | EKG ---
Date Performed: 12/22/2016 Time Performed: 11:22:33 PTAGE: 61 years EKG: Sinus rhythm When compared to previous tracing, no significant change. NORMAL ECG PREVIOUS TRACING : 07/27/2016 01.12.00 DOCTOR: Jm Wisdom Interpretating Date/Time 12/23/2016 16:27:52
--- NOTE | 2016-12-23 16:30 | EKG ---
Date Performed: 12/22/2016 Time Performed: 14:30:35 PTAGE: 61 years EKG: Sinus rhythm NONSPECIFIC T-WAVE ABNORMALITY When commpared to previous tracing, T waves are somewhat Flattened in leads I and AVL. BORDERLINE ECG PREVIOUS TRACING : 07/27/2016 01.12 DOCTOR: Jm Wisdom Interpretating Date/Time 12/23/2016 16:29:34
[2016-12-24] MEDS ORDERED: VENLAFAXINE HCL XR 75 MG CAP PO SCH (09:00)
== END 2016-12-23 14:40 | DRG 918 ==
LOC: NEPC 11:11 → NEDA 14:32 → HIME 18:10
PROVIDERS: ADMIT Internal Medicine; ATTEND Internal Medicine
DX: T43.212A Poisoning by selective serotonin and norepinephrine reuptake inhibitors, intentional self-harm, initial encounter (principal); J44.1 Chronic obstructive pulmonary disease with (acute) exacerbation; I10 Essential (primary) hypertension; F14.10 Cocaine abuse, uncomplicated; F43.10 Post-traumatic stress disorder, unspecified; E78.5 Hyperlipidemia, unspecified; E03.9 Hypothyroidism, unspecified; F17.210 Nicotine dependence, cigarettes, uncomplicated
CPT/HCPCS: 36600; 51702; 71010; 80048; 80053; 80307; 80320; 80329; 81001; 82550; 82805; 83735; 84443; 84484; 85025; 85610; 85730; 87641; 93005; 94664; 96361; 96374; G0480; J1644; J2405; J2920; J3370; J7030; J7050

== ENCOUNTER 2016-12-23 14:55 | Inpatient (IN) | payer OTHER ==
[~2016-12-23] VITALS: Ht 175.3 cm; Wt 109.4 kg
[~2016-12-23 14:55] MED LIST changes: -1-ME1LIQ PO; +AMLO10TA2 PO; +ASPI81TA2 PO; -ASPI81TA82 PO; +ATOR1TAB18 PO; -ATOR80TA PO; +CLON0.1T PO; -HYDR-2768 PO; +HYDR50TA3 PO; +IPRA17I INH; +IPRASOL NEB; +LEVA750T PO; -LEVO.025 PO; +LEVO25TA4 PO; +MULT-135 PO; +OMEP20TA PO; -OMEP20TA39 PO; +POTA10TA2 PO; -POTA10TA48 PO; +PRAZ5CAP PO; -PRAZ5CAP16 PO; +PRED20 PO; +SYMB160A INH; -TAB-TAB PO; -TRAZ100 PO; +TRAZ100T4 PO; -VENL-39 PO; +VENL75TA PO
[2016-12-23 15:00] VITALS: BP 142/86; PULSE 87; RESP 16; TEMP 96.4
[2016-12-23] MEDS ORDERED: MAGNESIUM HYDROXIDE SUSP 30 ML CUP PO PRN (15:45)
[2016-12-23] MEDS ORDERED: ALUMINUM/MAGNESIUM/SIMETH 30 ML CUP PO PRN (15:45)
[2016-12-23] MEDS ORDERED: ACETAMINOPHEN 325 MG TAB PO PRN (15:45)
[2016-12-23] MEDS: NICOTINE 21 MG/24 HR PATCH T-DERMAL SCH (17:28)
[2016-12-23] MEDS: cloNIDine HCL 0.1 MG TAB PO SCH (17:28)
[2016-12-23] MEDS: ATORVASTATIN 80 MG TAB PO SCH ×2 (21:00→22:31)
[2016-12-23] MEDS: BUDESONIDE-FORMOTEROL 160/4.5 MCG INHALER INH SCH ×2 (21:00→22:30)
[2016-12-23] MEDS: REMOVE OLD NICOTINE PATCH T-DERMAL SCH (21:00)
[2016-12-23] MEDS: RESP: ALBUTEROL 2.5 MG/IPRATROPIUM 0.5 MG NEB (SCH) NEB (21:33)
[2016-12-24 05:22] VITALS: BP 139/69; PULSE 65; RESP 18; TEMP 96.1
[2016-12-24] MEDS: LEVOTHYROXINE SODIUM 25 MCG TAB PO SCH (06:02)
[2016-12-24 08:24] LABS: ANION GAP 9 MEQ/L (5-15); BICARBONATE 28.7 MEQ/L (21.0-32.0); BLOOD UREA NITROGEN 23 MG/DL (7-18); CHLORIDE 103 MEQ/L (98-107); GLOMERULAR FILTRATION RATE 57 ML/MIN (>89); HDL CHOLESTEROL 35.7 MG/DL (40.0-60.0); LDL CHOLESTEROL 87 MG/DL (0-99); SODIUM (NA) 141 MEQ/L (136-145)
[2016-12-24] MEDS: TIOTROPIUM BROMIDE 18 MCG INH INH SCH (09:00)
[2016-12-24] MEDS: BUDESONIDE-FORMOTEROL 160/4.5 MCG INHALER INH SCH ×2 (09:00→20:29)
[2016-12-24] MEDS: NICOTINE 21 MG/24 HR PATCH T-DERMAL SCH (09:00)
[2016-12-24] MEDS: LEVOFLOXACIN 750 MG TAB PO SCH (09:10)
[2016-12-24] MEDS: VENLAFAXINE HCL XR 75 MG CAP PO SCH (09:10)
[2016-12-24] MEDS: MULTIVITAMIN TAB PO SCH (09:10)
[2016-12-24] MEDS: PANTOPRAZOLE SOD 20 MG DELAYED RELEASE TAB PO SCH (09:10)
[2016-12-24] MEDS: cloNIDine HCL 0.1 MG TAB PO SCH ×3 (09:11→18:37)
[2016-12-24] MEDS: ASPIRIN EC 81 MG TABEC PO SCH (09:11)
[2016-12-24] MEDS: predniSONE 20 MG TAB PO SCH (09:11)
[2016-12-24] MEDS: RESP: ALBUTEROL 2.5 MG/IPRATROPIUM 0.5 MG NEB (SCH) NEB ×4 (09:59→20:08)
--- NOTE | 2016-12-24 11:17 | PD.CONS ---
HPI Service [facility] Consult Requested By Psychiatry team Reason for Consult Medical management COPD, HTN Primary Care Physician Unknown Diagnoses: History of Present Illness Patient is a 61-year-old white male with primary medical history of PTSD, COPD, HTN, HLD, hypothyroidism who came in under Zepeda act after he intentionally took 20 pills of trazodone 100 mg. Patient was previously admitted to intensive care unit for monitoring. Improved clinical status. He is now admitted to inpatient psychiatry unit. Consulted for medical management. Patient seen today. States he is doing well. He on room air. Denies pain and discomfort. Denies SOB/ dyspnea. Denies chest pain, palpitations, headaches, dizziness. Denies fevers, chills, n/v/d. Review of Systems Except as stated in HPI: all other systems reviewed are Neg Past Family Social History Allergies: Coded Allergies: Codeine (Verified Adverse Reaction, Severe, Nausea/Vomiting, 12/22/16) Past Medical History PTSD COPD HTN HLD Hypothyroidism Past Surgical History Hernia repair Reported Medications Effexor (Venlafaxine HCl) 75 Mg Tab 150 Mg PO DAILY Trazodone (Trazodone HCl) 100 Mg Tab 150 Mg PO HS Prazosin (Prazosin HCl) 5 Mg Cap 10 Mg PO HS Potassium Chloride ER (Potassium Chloride) 10 Meq Tab 10 Meq PO DAILY Omeprazole 20 Mg Tab 20 Mg PO DAILY Multi Vitamin (Multiple Vitamin) 1 Tab Tab 1 Tab PO DAILY Levothyroxine (Levothyroxine Sodium) 25 Mcg Tab 25 Mcg PO DAILY Atrovent HFA 12.9 GM Inh (Ipratropium [place]) 17 Mcg/Act Aer 2 Puff INH BID Hydrochlorothiazide 50 Mg Tab 50 Mg PO DAILY Clonidine (Clonidine HCl) 0.1 Mg Tab 0.1 Mg PO TID Symbicort Inh (Budesonide/Formoterol Fumarate) 160-4.5 Mcg/Act Aero 2 Puff INH BID Atorvastatin (Atorvastatin Calcium) 80 Mg Tab 80 Mg PO HS Aspirin EC Low Dose (Aspirin) 81 Mg Tabec 81 Mg PO DAILY Amlodipine (Amlodipine Besylate) 10 Mg Tab 10 Mg PO DAILY Active Ordered Medications Current Medications Medications (Trade) Dose Ordered Sig/Anshu Route Start Time Stop Time Status Last Admin (Tylenol) 650 mg Q4H PRN PO 12/23/16 15:45 (Milk Of Magnesia Liq) 30 ml DAILY PRN PO 12/23/16 15:45 (Mag-Al Plus Susp Liq) 30 ml Q6H PRN PO 12/23/16 15:45 (Habitrol 21 Mg Patch.24 Hr) 1 patch DAILY T-DERMAL 12/23/16 16:00 12/23/16 17:28 Miscellaneous Information 1 HS T-DERMAL 12/23/16 21:00 12/23/16 21:00 (Deltasone) 40 mg DAILY PO 12/24/16 09:00 01/03/17 09:01 12/24/16 09:11 (Ecotrin Ec) 81 mg DAILY PO 12/24/16 09:00 12/24/16 09:11 (Lipitor) 80 mg HS PO 12/23/16 21:00 12/23/16 22:31 (Symbicort 160-4.5 Inh) 2 puff BID INH 12/23/16 21:00 12/24/16 09:00 (Catapres) 0.1 mg TID PO 12/23/16 18:00 12/24/16 09:11 (Synthroid) 25 mcg DAILY@06 PO 12/24/16 06:00 12/24/16 06:02 (Theragran) 1 tab DAILY PO 12/24/16 09:00 12/24/16 09:10 (Protonix) 20 mg DAILY PO 12/24/16 09:00 12/24/16 09:10 (Spiriva Inh) 18 mcg DAILY INH 12/24/16 09:00 12/24/16 09:00 (Levaquin) 750 mg DAILY PO 12/24/16 09:00 12/26/16 08:59 12/24/16 09:10 (Effexor Xr) 150 mg DAILY PO 12/24/16 09:00 12/24/16 09:10 Family History Lung cancer and lymphoma Social History Alcohol use weekly. Tobacco use half a pack a day Substance abuse cocaine, amphetamine when he feels "depressed" Physical Exam Vital Signs Vital Signs Date Time Temp Pulse Resp B/P Pulse Ox O2 Delivery O2 Flow Rate FiO2 12/24/16 05:22 96.1 65 18 139/69 12/23/16 15:00 96.4 87 16 142/86 Physical Exam GENERAL: This is a well-nourished, well-developed patient, in no apparent distress. SKIN: No rashes, ecchymoses or lesions. Cool and dry. HEAD: Atraumatic. Normocephalic. No temporal or scalp tenderness. EYES: Pupils equal round and reactive. Extraocular motions intact. No scleral icterus. No injection or drainage. ENT: Nose without bleeding. Throat without erythema. Uvula midline. Airway patent. NECK: Trachea midline. No JVD or lymphadenopathy. Supple, nontender, no meningeal signs. CARDIOVASCULAR: Regular rate and rhythm without murmurs, gallops, or rubs. RESPIRATORY: Diminished bases. No wheezes, rales, or rhonchi. On room air. GASTROINTESTINAL: Abdomen soft, non-tender, nondistended. No hepato-splenomegaly , or palpable masses. No guarding. MUSCULOSKELETAL: Extremities without clubbing, cyanosis, or edema. No joint tenderness, effusion, or edema noted. No calf tenderness. Negative Homans sign bilaterally. NEUROLOGICAL: Awake and alert. Motor and sensory grossly within normal limits. No focal neuro deficit. Normal speech. Laboratory Laboratory Tests Test 12/24/16 06:32 Sodium Level 141 Potassium Level 4.0 Chloride Level 103 Carbon Dioxide Level 28.7 Anion Gap 9 Blood Urea Nitrogen 23 Creatinine 1.29 Estimat Glomerular Filtration 57 Rate Random Glucose 131 Calcium Level 8.4 Triglycerides Level 150 Cholesterol Level 153 LDL Cholesterol 87 HDL Cholesterol 35.7 Cholesterol/HDL Ratio 4.28 Result Diagram: 12/24/16 0632 Assessment and Plan Problem List: (1) PTSD (post-traumatic stress disorder) ICD Code: F43.10 Status: Acute (2) Suicidal behavior with attempted self-injury ICD Code: T14.91 Status: Acute (3) Cocaine abuse ICD Code: F14.10 Status: Acute (4) COPD exacerbation ICD Code: J44.1 Status: Acute (5) HTN (hypertension) ICD Code: I10 Status: Chronic (6) Hypothyroidism ICD Code: E03.9 Status: Chronic (7) Overdose of opiate or related narcotic ICD Code: T40.601A Status: Acute Assessment and Plan Patient is a 61-year-old white male with who came in under Zepeda act after he intentionally took 20 pills of trazodone 100 mg. Patient was previously admitted to intensive care unit for monitoring. Improved clinical status. He is now admitted to inpatient psychiatry unit. Consulted for medical management. Depression, suicidal ideation - managed by psychiatry team Overdose, trazodone 100 mg - Poison control notified by ED - Monitor EKG. First EKG reviewed by me sinus rhythm normal, QT 459, repeat EKG reviewed by me sinus rhythm, QT 420, no significant change from previous EKG , no ST segment changes noted - Hemodynamically stable and neurologically stable. COPD exacerbation with hypoxia - received 1 g vancomycin in the ED, elevated WBC 11.6 - Chest x-ray showed faint airspace disease in the medial aspect of both lung bases is nonspecific but could represent an element of aspiration. Borderline, well compensated heart. - Levaquin 750 daily until 12/26/16 - DuoNeb's 4 times a day and when necessary - Discontinue Solu-Medrol and continue prednisone and Symbicort HLD HTN - continue home meds clonidine 3 times a day, ASA 81 mg, atorvastatin 80mg - Monitor BP trend. Continue to hold home medication prazosin, Norvasc, hydrochlorothiazide and potassium Hypothyroidism - continue with levothyroxine 25 g DVT prop heparin subcutaneous Written by Beny Enriquez, acting as scribe for Dr. Ramirez on 12/24/16 at 12: 50. The documentation accurately reflects the work performed [id number] by me on at 14:44. Written by Beny Enriquez, acting as scribe for Dr. Ramirez on 12/24/16 at . Code Status Full code Discussed Condition With Patient, nursing Beny Irby Dec 24, 2016 11:17 Raymundo Ramirez MD Dec 24, 2016 14:44
[2016-12-24 12:53] LABS: HEMOGLOBIN A1a 0.9 %; HEMOGLOBIN A1b 1.9 %; HEMOGLOBIN Ao 85.5 %; HEMOGLOBIN LA1C 2.2 %; HEMOGLOBIN P3 3.8 %
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
[2016-12-24] MEDS ORDERED: ALUMINUM/MAGNESIUM/SIMETH 30 ML CUP PO PRN (13:30)
[2016-12-24] MEDS ORDERED: MAGNESIUM HYDROXIDE SUSP 30 ML CUP PO PRN (13:30)
[2016-12-24] MEDS ORDERED: ACETAMINOPHEN 325 MG TAB PO PRN (13:30)
[2016-12-24 18:16] VITALS: BP 164/99; PULSE 66; RESP 18; TEMP 98.9; O2SAT 95
[2016-12-24 19:33] VITALS: BP 156/73; PULSE 66
[2016-12-24] MEDS: ATORVASTATIN 80 MG TAB PO SCH (20:29)
[2016-12-24] MEDS: REMOVE OLD NICOTINE PATCH T-DERMAL SCH (20:30)
[2016-12-25 05:52] VITALS: BP 159/69; PULSE 63; TEMP 98.2; O2SAT 96
[2016-12-25] MEDS: LEVOTHYROXINE SODIUM 25 MCG TAB PO SCH (06:08)
[2016-12-25] MEDS: MULTIVITAMIN TAB PO SCH (08:24)
[2016-12-25] MEDS: cloNIDine HCL 0.1 MG TAB PO SCH ×3 (08:25→17:54)
[2016-12-25] MEDS: ASPIRIN EC 81 MG TABEC PO SCH (08:25)
[2016-12-25] MEDS: predniSONE 20 MG TAB PO SCH (08:25)
[2016-12-25] MEDS: LEVOFLOXACIN 750 MG TAB PO SCH (08:25)
[2016-12-25] MEDS: VENLAFAXINE HCL XR 75 MG CAP PO SCH (08:26)
[2016-12-25] MEDS: TIOTROPIUM BROMIDE 18 MCG INH INH SCH (09:00)
[2016-12-25] MEDS: PANTOPRAZOLE SOD 20 MG DELAYED RELEASE TAB PO SCH (09:00)
[2016-12-25] MEDS: BUDESONIDE-FORMOTEROL 160/4.5 MCG INHALER INH SCH ×2 (09:00→20:16)
[2016-12-25] MEDS: NICOTINE 21 MG/24 HR PATCH T-DERMAL SCH (09:00)
[2016-12-25] MEDS ORDERED: NICOTINE 21 MG/24 HR PATCH T-DERMAL SCH (09:00)
[2016-12-25] MEDS: RESP: ALBUTEROL 2.5 MG/IPRATROPIUM 0.5 MG NEB (SCH) NEB ×4 (09:24→20:00)
[2016-12-25 12:47] VITALS: BP 146/75; PULSE 68; O2SAT 94
--- NOTE | 2016-12-25 15:16 | HHI.PYPN ---
Subjective Remarks Patient discussed with treatment team and medical student Sonya, chart reviewed, patient seen on unit. Patient continues to isolate depressed thus is dreams are somewhat less intrusive, does feel fairly safe. Thanks suicidality at this time. Patient compliant with medications. For now continue treatment Review of Systems Except as stated in HPI: all other systems reviewed are Neg Objective Alert: Yes [place]: Person, Place, Date Mood: Calm, Depressed Affect: Restricted Memory Intact: Comment Hallucinations: Other (fair occasional dreams and flashbacks) Delusions: No Delusion Type: Other (occasional dreams and flashbacks) Suicidal: Ideation (denies today) Homicidal: Ideation (denies today) Insight/Judgement Poor Vitals/IOs Vital Signs Date Time Temp Pulse Resp B/P Pulse Ox O2 Delivery O2 Flow Rate FiO2 12/25/16 12:47 68 146/75 94 12/25/16 05:52 98.2 12/24/16 18:16 18 Assessment & Plan Problem List: (1) Substance induced mood disorder ICD Code: F19.94 (2) PTSD (post-traumatic stress disorder) ICD Code: F43.10 Assessment & Plan Estimated LOS: days patient continues depressed with vivid nightmares. Compliant medications. For now continue treatment Justification for Cont. Inpt. At this time patient will decompensate and placed in the lower level of care Discharge Planning To be determined Request HC Surrog/Guard Advoc?: Robby Roman MD Dec 25, 2016 15:16
--- NOTE | 2016-12-25 16:22 | HHI.PR ---
Subjective Remarks Follow-up COPD and hypertension. Improving shortness of breath. Discussed with RN Objective Vitals Vital Signs Date Time Temp Pulse Resp B/P Pulse Ox O2 Delivery O2 Flow Rate FiO2 12/25/16 12:47 68 146/75 94 12/25/16 05:52 98.2 63 159/69 96 12/24/16 19:33 66 156/73 12/24/16 18:16 98.9 66 18 164/99 95 Result Diagram: 12/24/16 0632 Objective Remarks GENERAL: This is a well-nourished, well-developed patient, in no apparent distress. SKIN: No rashes, ecchymoses or lesions. Cool and dry. HEAD: Atraumatic. Normocephalic. No temporal or scalp tenderness. EYES: Pupils equal round and reactive. Extraocular motions intact. No scleral icterus. No injection or drainage. ENT: Nose without bleeding. Throat without erythema. Uvula midline. Airway patent. NECK: Trachea midline. No JVD or lymphadenopathy. Supple, nontender, no meningeal signs. CARDIOVASCULAR: Regular rate and rhythm without murmurs, gallops, or rubs. RESPIRATORY: Diminished bases. No wheezes, rales, or rhonchi. On room air. GASTROINTESTINAL: Abdomen soft, non-tender, nondistended. No guarding. MUSCULOSKELETAL: Extremities without clubbing, cyanosis, or edema. No joint tenderness, effusion, or edema noted. No calf tenderness. Negative Homans sign bilaterally. NEUROLOGICAL: Awake and alert. Motor and sensory grossly within normal limits. No focal neuro deficit. Normal speech. A/P Problem List: (1) PTSD (post-traumatic stress disorder) ICD Code: F43.10 Status: Acute (2) Suicidal behavior with attempted self-injury ICD Code: T14.91 Status: Acute (3) Cocaine abuse ICD Code: F14.10 Status: Acute (4) COPD exacerbation ICD Code: J44.1 Status: Acute (5) HTN (hypertension) ICD Code: I10 Status: Chronic (6) Hypothyroidism ICD Code: E03.9 Status: Chronic (7) Overdose of opiate or related narcotic ICD Code: T40.601A Status: Acute Assessment and Plan Patient is a 61-year-old white male with who came in under Zepeda act after he intentionally took 20 pills of trazodone 100 mg. Patient was previously admitted to intensive care unit for monitoring. Improved clinical status. He is now admitted to inpatient psychiatry unit. Consulted for medical management. Depression, suicidal ideation - managed by psychiatry team Overdose, trazodone 100 mg - Poison control notified by ED - Monitor EKG. First EKG reviewed by me sinus rhythm normal, QT 459, repeat EKG reviewed by me sinus rhythm, QT 420, no significant change from previous EKG , no ST segment changes noted - Hemodynamically stable and neurologically stable. COPD exacerbation with hypoxia - received 1 g vancomycin in the ED, elevated WBC 11.6 - Chest x-ray showed faint airspace disease in the medial aspect of both lung bases is nonspecific but could represent an element of aspiration. Borderline, well compensated heart. - Levaquin 750 daily until 12/26/16 - DuoNeb's 4 times a day and when necessary - Discontinue Solu-Medrol and continue prednisone and Symbicort. Improving HLD HTN - continue home meds clonidine 3 times a day, ASA 81 mg, atorvastatin 80mg - Monitor BP trend. BP creeping up restart hydrochlorothiazide at a lower dose secondary to acute kidney injury on admission. Monitor renal function. Continue to hold home medication prazosin and Norvasc Hypothyroidism - continue with levothyroxine 25 g DVT prop patient ambulatory Raymundo Ramirez MD Dec 25, 2016 16:22
[2016-12-25 17:15] VITALS: BP 147/89; PULSE 70; RESP 18; TEMP 98.5; O2SAT 95
[2016-12-25 19:58] LABS: ANION GAP 8 MEQ/L (5-15); BICARBONATE 32.1 MEQ/L (21.0-32.0); BLOOD UREA NITROGEN 22 MG/DL (7-18); CHLORIDE 99 MEQ/L (98-107); GLOMERULAR FILTRATION RATE 56 ML/MIN (>89); HDL CHOLESTEROL 39.9 MG/DL (40.0-60.0); LDL CHOLESTEROL 94 MG/DL (0-99); POTASSIUM 4.5 MEQ/L (3.5-5.1); SODIUM (NA) 139 MEQ/L (136-145)
[2016-12-25] MEDS: ATORVASTATIN 80 MG TAB PO SCH (20:16)
[2016-12-25] MEDS: REMOVE OLD NICOTINE PATCH T-DERMAL SCH (21:00)
[2016-12-25 22:31] LABS: HEMOGLOBIN A1a 1.2 %; HEMOGLOBIN A1b 1.8 %; HEMOGLOBIN Ao 85.1 %; HEMOGLOBIN LA1C 2.4 %; HEMOGLOBIN P3 3.8 %
[2016-12-26 05:32] VITALS: BP 167/92; PULSE 63; RESP 18; TEMP 98.3; O2SAT 94
[2016-12-26] MEDS: LEVOTHYROXINE SODIUM 25 MCG TAB PO SCH (05:58)
[2016-12-26] MEDS: cloNIDine HCL 0.1 MG TAB PO SCH ×3 (08:48→18:11)
[2016-12-26] MEDS: HYDROCHLOROTHIAZIDE 25 MG TAB PO SCH (08:49)
[2016-12-26] MEDS: POTASSIUM CHLORIDE 10 MEQ CONTROLLED RELEASE TAB PO SCH (08:49)
[2016-12-26] MEDS: VENLAFAXINE HCL XR 75 MG CAP PO SCH (08:49)
[2016-12-26] MEDS: MULTIVITAMIN TAB PO SCH (08:50)
[2016-12-26] MEDS: predniSONE 20 MG TAB PO SCH (08:50)
[2016-12-26] MEDS: PANTOPRAZOLE SOD 20 MG DELAYED RELEASE TAB PO SCH (08:50)
[2016-12-26] MEDS: ASPIRIN EC 81 MG TABEC PO SCH (08:50)
[2016-12-26] MEDS: NICOTINE 21 MG/24 HR PATCH T-DERMAL SCH (09:00)
[2016-12-26] MEDS: TIOTROPIUM BROMIDE 18 MCG INH INH SCH (09:00)
[2016-12-26] MEDS: MUPIROCIN 2% OINT 1 APPLIC/GM SYR EACH NARE SCH ×2 (09:00→21:11)
[2016-12-26] MEDS: BUDESONIDE-FORMOTEROL 160/4.5 MCG INHALER INH SCH ×2 (09:00→21:00)
[2016-12-26] MEDS: RESP: ALBUTEROL 2.5 MG/IPRATROPIUM 0.5 MG NEB (SCH) NEB ×4 (09:29→20:04)
--- NOTE | 2016-12-26 12:47 | HHI.PYPN ---
Subjective Remarks Patient seen in [place] with nurse 1 and medical student Sonya, chart review, patient continues depressed stating the nightmares persist with initial and mid insomnia. He states his suicidality also persistently feels safe on the unit. We'll add Elavil 25 mg at at bedtime Review of Systems Except as stated in HPI: all other systems reviewed are Neg Objective Alert: Yes [place]: Person, Place, Date Mood: Calm, Depressed Affect: Restricted Memory Intact: Comment Hallucinations: Other (fair occasional dreams and flashbacks) Delusions: No Delusion Type: Other (occasional dreams and flashbacks) Suicidal: Ideation (denies today) Homicidal: Ideation (denies today) Insight/Judgement Poor Labs Test 12/25/16 19:05 Sodium Level 139 MEQ/L Potassium Level 4.5 MEQ/L Chloride Level 99 MEQ/L Carbon Dioxide Level 32.1 MEQ/L Anion Gap 8 MEQ/L Blood Urea Nitrogen 22 MG/DL Creatinine 1.30 MG/DL Estimat Glomerular Filtration 56 ML/MIN Rate Random Glucose 151 MG/DL Hemoglobin A1c 5.4 % Calcium Level 8.7 MG/DL Triglycerides Level 180 MG/DL Cholesterol Level 170 MG/DL LDL Cholesterol 94 MG/DL HDL Cholesterol 39.9 MG/DL Cholesterol/HDL Ratio 4.26 RATIO Vitals/IOs Vital Signs Date Time Temp Pulse Resp B/P Pulse Ox O2 Delivery O2 Flow Rate FiO2 12/26/16 05:32 98.3 63 18 167/92 94 Assessment & Plan Problem List: (1) Substance induced mood disorder ICD Code: F19.94 (2) PTSD (post-traumatic stress disorder) ICD Code: F43.10 Assessment & Plan Estimated LOS: days patient continues depressed though they suicidality and persistent nightmares possible flashbacks. She medication addition above Justification for Cont. Inpt. At this time patient would severely decompensate with placed in a lower level of care Discharge Planning To be determined Request HC Surrog/Guard Advoc?: Robby Roman MD Dec 26, 2016 12:47
[2016-12-26 15:20] VITALS: BP 123/62; PULSE 67
--- NOTE | 2016-12-26 15:23 | HHI.PR ---
Blank section for building Chart reviewed patient appears medically stable we will sign off. If patient's condition changes or further assistance is needed please reconsult Written by Radha Dee, acting as scribe for Dr. Ramirez on 12/26/16 at 15:23. Radha Dee Dec 26, 2016 15:23
[2016-12-26 17:59] VITALS: BP 142/67; PULSE 75; RESP 17; TEMP 97.4; O2SAT 91
[2016-12-26 20:43] VITALS: BP 123/63; PULSE 72; RESP 18; TEMP 97.6; O2SAT 94
[2016-12-26] MEDS: REMOVE OLD NICOTINE PATCH T-DERMAL SCH (21:00)
[2016-12-26] MEDS: AMITRIPTYLINE HCL 25 MG TAB PO SCH (21:10)
[2016-12-26] MEDS: ATORVASTATIN 80 MG TAB PO SCH (21:10)
[2016-12-27 05:15] VITALS: BP 117/70; PULSE 65; RESP 18; TEMP 97.8; O2SAT 95
[2016-12-27] MEDS: LEVOTHYROXINE SODIUM 25 MCG TAB PO SCH (05:52)
[2016-12-27] MEDS: RESP: ALBUTEROL 2.5 MG/IPRATROPIUM 0.5 MG NEB (SCH) NEB ×2 (08:00→12:00)
[2016-12-27] MEDS: NICOTINE 21 MG/24 HR PATCH T-DERMAL SCH (08:13)
[2016-12-27] MEDS: POTASSIUM CHLORIDE 10 MEQ CONTROLLED RELEASE TAB PO SCH (08:14)
[2016-12-27] MEDS: cloNIDine HCL 0.1 MG TAB PO SCH ×3 (08:14→19:43)
[2016-12-27] MEDS: BUDESONIDE-FORMOTEROL 160/4.5 MCG INHALER INH SCH ×2 (08:14→21:16)
[2016-12-27] MEDS: HYDROCHLOROTHIAZIDE 25 MG TAB PO SCH (08:14)
[2016-12-27] MEDS: VENLAFAXINE HCL XR 75 MG CAP PO SCH (08:14)
[2016-12-27] MEDS: ASPIRIN EC 81 MG TABEC PO SCH (08:14)
[2016-12-27] MEDS: MULTIVITAMIN TAB PO SCH (08:14)
[2016-12-27] MEDS: predniSONE 20 MG TAB PO SCH (08:14)
[2016-12-27] MEDS: PANTOPRAZOLE SOD 20 MG DELAYED RELEASE TAB PO SCH (08:14)
[2016-12-27] MEDS: MUPIROCIN 2% OINT 1 APPLIC/GM SYR EACH NARE SCH ×2 (08:15→21:16)
[2016-12-27] MEDS: TIOTROPIUM BROMIDE 18 MCG INH INH SCH (08:25)
--- NOTE | 2016-12-27 14:25 | HHI.PYPN ---
Subjective Remarks Patient seen in room with nurse Cintia, patient states sleep continues interrupted but somewhat less than prior nights there is also the continued nightmares though somewhat softer. He continues also with depression and with vague suicidal ideation. He is having a difficult time spending any time out in the day room attempting to socialize with other patients. Patient compliant medications. For now continue treatment. His behavior and thought processes may be somewhat of) affect is on a schedule steroid at the present time Review of Systems Except as stated in HPI: all other systems reviewed are Neg Objective Alert: Yes [place]: Person, Place, Date Mood: Calm, Depressed Affect: Restricted Memory Intact: Comment Hallucinations: Other (fair occasional dreams and flashbacks) Delusions: No Delusion Type: Other (occasional dreams and flashbacks) Suicidal: Ideation (denies today) Homicidal: Ideation (denies today) Insight/Judgement Poor Vitals/IOs Vital Signs Date Time Temp Pulse Resp B/P Pulse Ox O2 Delivery O2 Flow Rate FiO2 12/27/16 05:15 97.8 65 18 117/70 95 Assessment & Plan Problem List: (1) Substance induced mood disorder ICD Code: F19.94 (2) PTSD (post-traumatic stress disorder) ICD Code: F43.10 Assessment & Plan Estimated LOS: days patient continues depressed suicidal psychotic features related to his flashbacks. For now continue treatment Justification for Cont. Inpt. At this time patient would significantly decompensate if placed in the lower level of care Discharge Planning To be determined Request HC Surrog/Guard Advoc?: No Robby Ott MD Dec 27, 2016 14:25
[2016-12-27 18:28] VITALS: BP 168/91; PULSE 98; RESP 18; TEMP 98.6; O2SAT 96
[2016-12-27] MEDS: REMOVE OLD NICOTINE PATCH T-DERMAL SCH (21:00)
[2016-12-27] MEDS: ATORVASTATIN 80 MG TAB PO SCH (21:15)
[2016-12-27] MEDS: AMITRIPTYLINE HCL 25 MG TAB PO SCH (21:16)
[2016-12-28] MEDS: LEVOTHYROXINE SODIUM 25 MCG TAB PO SCH (05:34)
[2016-12-28 06:07] VITALS: BP 139/91; PULSE 68; RESP 18; TEMP 98
[2016-12-28] MEDS: POTASSIUM CHLORIDE 10 MEQ CONTROLLED RELEASE TAB PO SCH (09:00)
[2016-12-28] MEDS: MUPIROCIN 2% OINT 1 APPLIC/GM SYR EACH NARE SCH ×2 (09:00→21:08)
[2016-12-28] MEDS: MULTIVITAMIN TAB PO SCH (09:00)
[2016-12-28] MEDS: predniSONE 20 MG TAB PO SCH (09:00)
[2016-12-28] MEDS: NICOTINE 21 MG/24 HR PATCH T-DERMAL SCH (09:00)
[2016-12-28] MEDS: PANTOPRAZOLE SOD 20 MG DELAYED RELEASE TAB PO SCH (09:00)
[2016-12-28] MEDS: HYDROCHLOROTHIAZIDE 25 MG TAB PO SCH (09:00)
[2016-12-28] MEDS: VENLAFAXINE HCL XR 75 MG CAP PO SCH (09:00)
[2016-12-28] MEDS: ASPIRIN EC 81 MG TABEC PO SCH (09:00)
[2016-12-28] MEDS: TIOTROPIUM BROMIDE 18 MCG INH INH SCH ×2 (09:00→10:25)
[2016-12-28] MEDS: cloNIDine HCL 0.1 MG TAB PO SCH ×3 (09:00→17:56)
[2016-12-28] MEDS: BUDESONIDE-FORMOTEROL 160/4.5 MCG INHALER INH SCH ×2 (09:00→21:08)
[2016-12-28 12:52] VITALS: BP 131/60; PULSE 70
--- NOTE | 2016-12-28 13:03 | HHI.PYPN ---
Subjective Remarks Patient seen in [place] with nurse Maria M medical student Sonya, chart review, patient continues dysphoric today denying suicidality, stated he did not sleep last night was afraid of flashbacks and nightmares some of the ones he had the night before. Patient compliant with medications. For now continue treatment will increase at bedtime Elavil to 50 mg Review of Systems Except as stated in HPI: all other systems reviewed are Neg Objective Alert: Yes [place]: Person, Place, Date Mood: Calm, Depressed Affect: Restricted Memory Intact: Comment Hallucinations: Other (fair occasional dreams and flashbacks) Delusions: No Delusion Type: Other (occasional dreams and flashbacks) Suicidal: Ideation (denies today) Homicidal: Ideation (denies today) Insight/Judgement Poor Vitals/IOs Vital Signs Date Time Temp Pulse Resp B/P Pulse Ox O2 Delivery O2 Flow Rate FiO2 12/28/16 12:52 70 131/60 12/28/16 06:07 98.0 18 12/27/16 18:28 96 Intake and Output 12/27/16 12/27/16 12/28/16 08:00 16:00 00:00 Intake Total 240 ml Balance 240 ml Assessment & Plan Problem List: (1) Substance induced mood disorder ICD Code: F19.94 (2) PTSD (post-traumatic stress disorder) ICD Code: F43.10 Assessment & Plan Estimated LOS: days patient continues depressed with flashbacks with psychotic flavor, compliant medications, see medication adjustment above Justification for Cont. Inpt. At this time patient will decompensate placed in lower level of care Discharge Planning To be determined Request HC Surrog/Guard Advoc?: No Robby Ott MD Dec 28, 2016 13:03
[2016-12-28 18:02] VITALS: BP 118/68; PULSE 63; RESP 18; O2SAT 91
[2016-12-28] MEDS: REMOVE OLD NICOTINE PATCH T-DERMAL SCH (21:00)
[2016-12-28] MEDS: AMITRIPTYLINE HCL 50 MG TAB PO SCH (21:07)
[2016-12-28] MEDS: ATORVASTATIN 80 MG TAB PO SCH (21:08)
[2016-12-29 05:29] VITALS: BP 128/78; PULSE 74; RESP 18; TEMP 98; O2SAT 95
[2016-12-29] MEDS: LEVOTHYROXINE SODIUM 25 MCG TAB PO SCH (05:35)
[2016-12-29] MEDS: MUPIROCIN 2% OINT 1 APPLIC/GM SYR EACH NARE SCH ×2 (08:33→21:30)
[2016-12-29] MEDS: BUDESONIDE-FORMOTEROL 160/4.5 MCG INHALER INH SCH ×2 (08:34→21:31)
[2016-12-29] MEDS: MULTIVITAMIN TAB PO SCH (08:35)
[2016-12-29] MEDS: PANTOPRAZOLE SOD 20 MG DELAYED RELEASE TAB PO SCH (08:35)
[2016-12-29] MEDS: predniSONE 20 MG TAB PO SCH (08:35)
[2016-12-29] MEDS: ASPIRIN EC 81 MG TABEC PO SCH (08:35)
[2016-12-29] MEDS: cloNIDine HCL 0.1 MG TAB PO SCH ×3 (08:35→18:00)
[2016-12-29] MEDS: POTASSIUM CHLORIDE 10 MEQ CONTROLLED RELEASE TAB PO SCH (08:35)
[2016-12-29] MEDS: HYDROCHLOROTHIAZIDE 25 MG TAB PO SCH (08:35)
[2016-12-29] MEDS: TIOTROPIUM BROMIDE 18 MCG INH INH SCH (09:00)
[2016-12-29] MEDS: NICOTINE 21 MG/24 HR PATCH T-DERMAL SCH (09:00)
[2016-12-29] MEDS: VENLAFAXINE HCL XR 75 MG CAP PO SCH (09:00)
--- NOTE | 2016-12-29 12:40 | HHI.PYPN ---
Subjective Remarks Patient was seen and case discussed with nursing. Patient is pleasant and cooperative with exam. Defensive concerning his drug history. Continues to complain of posttraumatic stress disorder symptoms. Recurrent nightmares, flashbacks, hyperarousal. Describes his mood today is "a lot better." Denies suicidal ideations intent or plan. Behaving well on the unit Objective Alert: Yes [place]: Person, Place, Date Mood: Calm, Depressed Affect: Restricted Memory Intact: Comment Hallucinations: Other (fair occasional dreams and flashbacks) Delusions: No Delusion Type: Other (occasional dreams and flashbacks) Suicidal: Ideation (denies today) Homicidal: Ideation (denies today) Insight/Judgement Fair Vitals/IOs Vital Signs Date Time Temp Pulse Resp B/P Pulse Ox O2 Delivery O2 Flow Rate FiO2 12/29/16 05:29 98.0 74 18 128/78 95 Assessment & Plan Problem List: (1) Substance induced mood disorder ICD Code: F19.94 (2) PTSD (post-traumatic stress disorder) ICD Code: F43.10 Assessment & Plan Continue current treatment plan Justification for Cont. Inpt. Patient will decompensate in a less restrictive setting Request HC Surrog/Guard Advoc?: No Blake Oneil DO Dec 29, 2016 12:40
[2016-12-29 19:25] VITALS: BP 154/80; PULSE 80; RESP 16; TEMP 98.9; O2SAT 95
[2016-12-29] MEDS: REMOVE OLD NICOTINE PATCH T-DERMAL SCH (21:00)
[2016-12-29] MEDS: AMITRIPTYLINE HCL 50 MG TAB PO SCH (21:30)
[2016-12-29] MEDS: ATORVASTATIN 80 MG TAB PO SCH (21:32)
[2016-12-30 05:20] VITALS: BP 143/84; PULSE 65; RESP 18; TEMP 97.3; O2SAT 95
[2016-12-30] MEDS: LEVOTHYROXINE SODIUM 25 MCG TAB PO SCH (06:05)
[2016-12-30] MEDS: ASPIRIN EC 81 MG TABEC PO SCH (08:27)
[2016-12-30] MEDS: HYDROCHLOROTHIAZIDE 25 MG TAB PO SCH (08:27)
[2016-12-30] MEDS: PANTOPRAZOLE SOD 20 MG DELAYED RELEASE TAB PO SCH (08:27)
[2016-12-30] MEDS: TIOTROPIUM BROMIDE 18 MCG INH INH SCH (08:27)
[2016-12-30] MEDS: cloNIDine HCL 0.1 MG TAB PO SCH ×3 (08:28→18:07)
[2016-12-30] MEDS: predniSONE 20 MG TAB PO SCH (08:28)
[2016-12-30] MEDS: MUPIROCIN 2% OINT 1 APPLIC/GM SYR EACH NARE SCH ×2 (08:28→21:44)
[2016-12-30] MEDS: NICOTINE 21 MG/24 HR PATCH T-DERMAL SCH (08:28)
[2016-12-30] MEDS: MULTIVITAMIN TAB PO SCH (08:28)
[2016-12-30] MEDS: BUDESONIDE-FORMOTEROL 160/4.5 MCG INHALER INH SCH ×2 (08:28→21:43)
[2016-12-30] MEDS: POTASSIUM CHLORIDE 10 MEQ CONTROLLED RELEASE TAB PO SCH (08:28)
[2016-12-30] MEDS: VENLAFAXINE HCL XR 75 MG CAP PO SCH (09:00)
--- NOTE | 2016-12-30 13:08 | HHI.PYPN ---
Subjective Remarks Patient was seen and case discussed with nursing. Patient is pleasant and cooperative with exam. He denies fleeting suicidal thoughts but remains depressed. Though he says "mood is getting better." Looking forward to a discharge next week. He is behaving well on the unit. Flashbacks and nightmares still there Objective Alert: Yes [place]: Person, Place, Date Mood: Calm, Depressed Affect: Restricted Memory Intact: Comment Hallucinations: Other (fair occasional dreams and flashbacks) Delusions: No Delusion Type: Other (occasional dreams and flashbacks) Suicidal: Ideation (denies today) Homicidal: Ideation (denies today) Insight/Judgement Fair Vitals/IOs Vital Signs Date Time Temp Pulse Resp B/P Pulse Ox O2 Delivery O2 Flow Rate FiO2 12/30/16 05:20 97.3 65 18 143/84 95 Assessment & Plan Problem List: (1) Substance induced mood disorder ICD Code: F19.94 (2) PTSD (post-traumatic stress disorder) ICD Code: F43.10 Assessment & Plan Continue current treatment plan Justification for Cont. Inpt. Patient will decompensate in a less restrictive setting Request HC Surrog/Guard Advoc?: No Blake Oneil DO Dec 30, 2016 13:08
[2016-12-30 19:15] VITALS: BP 149/78; PULSE 88; RESP 18; TEMP 97.2; O2SAT 93
[2016-12-30] MEDS: REMOVE OLD NICOTINE PATCH T-DERMAL SCH (21:00)
[2016-12-30] MEDS: ATORVASTATIN 80 MG TAB PO SCH (21:43)
[2016-12-30] MEDS: AMITRIPTYLINE HCL 50 MG TAB PO SCH (21:43)
[2016-12-31 05:38] VITALS: BP 116/65; PULSE 57; RESP 18; TEMP 97.8; O2SAT 96
[2016-12-31] MEDS: LEVOTHYROXINE SODIUM 25 MCG TAB PO SCH (06:26)
[2016-12-31] MEDS: VENLAFAXINE HCL XR 75 MG CAP PO SCH (08:53)
[2016-12-31] MEDS: PANTOPRAZOLE SOD 20 MG DELAYED RELEASE TAB PO SCH (08:54)
[2016-12-31] MEDS: predniSONE 20 MG TAB PO SCH (08:54)
[2016-12-31] MEDS: HYDROCHLOROTHIAZIDE 25 MG TAB PO SCH (08:54)
[2016-12-31] MEDS: cloNIDine HCL 0.1 MG TAB PO SCH ×3 (08:54→17:17)
[2016-12-31] MEDS: ASPIRIN EC 81 MG TABEC PO SCH (08:54)
[2016-12-31] MEDS: POTASSIUM CHLORIDE 10 MEQ CONTROLLED RELEASE TAB PO SCH (08:55)
[2016-12-31] MEDS: NICOTINE 21 MG/24 HR PATCH T-DERMAL SCH (08:55)
[2016-12-31] MEDS: BUDESONIDE-FORMOTEROL 160/4.5 MCG INHALER INH SCH ×2 (08:55→22:02)
[2016-12-31] MEDS: MUPIROCIN 2% OINT 1 APPLIC/GM SYR EACH NARE SCH ×2 (08:55→22:02)
[2016-12-31] MEDS: TIOTROPIUM BROMIDE 18 MCG INH INH SCH (08:55)
[2016-12-31] MEDS: MULTIVITAMIN TAB PO SCH (08:56)
--- NOTE | 2016-12-31 15:12 | HHI.PYPN ---
Subjective Remarks Patient was seen and case discussed with nursing. Patient is pleasant and cooperative with exam. His compliant with his medications. Mood continues to improve. Flashbacks are improving. Asking about discharge. Denies suicidal ideation intent or plan Objective Alert: Yes [place]: Person, Place, Date Mood: Calm, Depressed Affect: Restricted Memory Intact: Comment Hallucinations: Other (fair occasional dreams and flashbacks) Delusions: No Delusion Type: Other (occasional dreams and flashbacks) Suicidal: Ideation (denies today) Homicidal: Ideation (denies today) Insight/Judgement Improving Vitals/IOs Vital Signs Date Time Temp Pulse Resp B/P Pulse Ox O2 Delivery O2 Flow Rate FiO2 12/31/16 05:38 97.8 57 18 116/65 96 Assessment & Plan Problem List: (1) Substance induced mood disorder ICD Code: F19.94 (2) PTSD (post-traumatic stress disorder) ICD Code: F43.10 Assessment & Plan Continue current treatment plan Justification for Cont. Inpt. Patient will decompensate in a less restrictive setting Request HC Surrog/Guard Advoc?: No Blake Oneil DO Dec 31, 2016 15:12
[2016-12-31 18:19] VITALS: BP 135/74; PULSE 77; RESP 16; TEMP 97.1; O2SAT 96
[2016-12-31] MEDS: REMOVE OLD NICOTINE PATCH T-DERMAL SCH (21:00)
[2016-12-31] MEDS: ATORVASTATIN 80 MG TAB PO SCH (22:01)
[2016-12-31] MEDS: AMITRIPTYLINE HCL 50 MG TAB PO SCH (22:01)
[2017-01-01 06:05] VITALS: BP 112/59; PULSE 64; RESP 16; TEMP 97.7; O2SAT 93
[2017-01-01] MEDS: LEVOTHYROXINE SODIUM 25 MCG TAB PO SCH (06:23)
[2017-01-01] MEDS: predniSONE 20 MG TAB PO SCH (08:31)
[2017-01-01] MEDS: BUDESONIDE-FORMOTEROL 160/4.5 MCG INHALER INH SCH (08:32)
[2017-01-01] MEDS: TIOTROPIUM BROMIDE 18 MCG INH INH SCH (08:32)
[2017-01-01] MEDS: POTASSIUM CHLORIDE 10 MEQ CONTROLLED RELEASE TAB PO SCH (08:32)
[2017-01-01] MEDS: ASPIRIN EC 81 MG TABEC PO SCH (08:32)
[2017-01-01] MEDS: MUPIROCIN 2% OINT 1 APPLIC/GM SYR EACH NARE SCH (08:33)
[2017-01-01] MEDS: cloNIDine HCL 0.1 MG TAB PO SCH ×2 (08:33→12:26)
[2017-01-01] MEDS: HYDROCHLOROTHIAZIDE 25 MG TAB PO SCH (08:33)
[2017-01-01] MEDS: VENLAFAXINE HCL XR 75 MG CAP PO SCH (08:33)
[2017-01-01] MEDS: MULTIVITAMIN TAB PO SCH (08:33)
[2017-01-01] MEDS: PANTOPRAZOLE SOD 20 MG DELAYED RELEASE TAB PO SCH (08:33)
[2017-01-01] MEDS: NICOTINE 21 MG/24 HR PATCH T-DERMAL SCH (08:36)
[2017-01-01] MEDS ORDERED: Amitriptyline PO (12:32)
[2017-01-01] MEDS ORDERED: SPIRCAP INH (12:32)
[2017-01-01] MEDS ORDERED: HYDR25TA5 PO (12:32)
[2017-01-01] MEDS ORDERED: LEVO25TA4 PO (12:32)
[2017-01-01] MEDS ORDERED: PANT20 PO (12:32)
[2017-01-01] MEDS ORDERED: THERTAB15 PO (12:32)
[2017-01-01] MEDS ORDERED: CLON.1 PO (12:32)
[2017-01-01] MEDS ORDERED: ASPI81TA11 PO (12:32)
[2017-01-01] MEDS ORDERED: LIPI80TA PO (12:32)
[2017-01-01] MEDS ORDERED: SYMB160A INH (12:32)
[2017-01-01] MEDS ORDERED: BACTOIN EACH NARE (12:32)
[2017-01-01] MEDS ORDERED: PRED20 PO (12:32)
[2017-01-01] MEDS ORDERED: POTA-243 PO (12:32)
[2017-01-01] MEDS ORDERED: EFFE150C PO (12:32)
--- NOTE | 2017-01-01 12:40 | HHI.DS ---
Psychiatry Discharge Summary Inpatient Psychiatric care?: Yes Advance Directive: Yes Mental Health AdvanceDirective: No Health Care Proxy: No Admission Admission Date Dec 23, 2016 at 14:55 Admission Diagnosis: (1) PTSD (post-traumatic stress disorder) ICD Code: F43.10 (2) Cocaine abuse ICD Code: F14.10 Brief History Patient is a [id number] white male initially seen by me in consultation with admission to the medical floor yesterday visit [phone] at that time pressure was PTSD and substance-induced mood disorder. Patient is quite depressed and suicidal ideation. Also use cocaine at that time with a friend. Continues depressed about his lifestyle depressed about his PTSD with his recurrent nightmares and the inability of counseling to help resolve. At the time of felt he needed continued stay under the Zepeda act. Patient is medically cleared and transferred here to 2600. Patient seen by me today in bed patient is calmer though he states his suicidality while present has somewhat diminished. He is willing to stay to get further help is been compliant with his medications. Thus at this summer for patients has inability to sign voluntarily thus I'll lift the Zepeda act. We did have us list also consulting with us. Tobacco Use In Past 30 Days: 5 or More Cigarettes/Day Alcohol Use: Never Hospital Course Patient seen today with treatment team. Patient had a good weekend, has been compliant with his medications. States with the increased Elavil to 50 mg at bedtime is sleeping well denies any nightmares at this time. Denies suicidality homicidality voices or visions. He feels is markedly improved and now he wishes discharge. He feels confident with follow-up at the [place] thus patient has reached maximum benefit of this hospitalization will be written a 1 month supply of all of his schedule medications follow-up with with medications tomorrow at the [facility] clinic. Patient realizes that waiting until tomorrow he may miss 1 day's course of his schedule psychotropics and medical medications Results Blood Pressure 112 / 59 Vital Signs Date Time Temp Pulse Resp B/P Pulse Ox O2 Delivery O2 Flow Rate FiO2 01/01/17 06:05 97.7 64 16 112/59 93 Urine toxicology drawn with visit [phone] positive for cocaine Summary of Procedures None done Pending results at discharge: No Medications # of Antipsychotic meds at D/C: 0 Approp Antipsych med options 1 - Minimum of three failed multiple trials of monotherapy. 2 - Documented plan to taper to monotherapy due to previous use of multiple meds OR cross-taper in progress at D/C. 3 - Documentation of augmentation of Clozapine. 4 - Justification other than those listed in allowable values 1-3, document here : Discharge Discharge Date: Jan 01, 2017 Discharge Diagnosis: (1) PTSD (post-traumatic stress disorder) Diagnosis: Principal ICD Code: F43.10 (2) Cocaine abuse Diagnosis: Secondary ICD Code: F14.10 Mental Status Exam at Disch Alert oriented white male sitting, with treatment team, he has normal active, mood is euthymic affect showed good range intensity, speech rate and rhythm within normal limits though no formal thought disorders, noted traversing hallucinations no delusions, and satting judgment is fair cognition grossly intact Pt Condition on Discharge: Stable Discharge Disposition: Discharge Home Discharge Instructions Diet Instructions: As Tolerated, No Restrictions Activities you can perform: Regular-No Restrictions Scheduled Appointment: [facility] clinic Appointment Date: Jan 01, 2017 Appointment Time: 2:00 Discharge Time > 30 minutes Discharge/Advance Care Plan Health Problems: (1) Substance induced mood disorder (2) PTSD (post-traumatic stress disorder) Goals to promote your health * To prevent worsening of your condition and complications * To maintain your health at the optimal level Directions to meet your goals Take your medications as prescribed Follow your dietary instruction Follow activity as directed Keep your appointments as scheduled Take your immunizations and boosters as scheduled If your symptoms worsen call your PCP, if no PCP go to Urgent Care Center or Emergency Room For 28/05 questions related to your inpatient stay or results of tests pending at discharge, please contact Dr. Robby Ott at Smoking is Dangerous to Your Health. Avoid second hand smoking Robby Ott MD Jan 01, 2017 12:40
== END 2017-01-01 14:45 | disposition home or self-care (01) | DRG 882 ==
LOC: H260 14:55
PROVIDERS: ADMIT Psychiatry & Neurology Psychiatry; ATTEND Psychiatry & Neurology Psychiatry
DX: F43.10 Post-traumatic stress disorder, unspecified (principal); J44.1 Chronic obstructive pulmonary disease with (acute) exacerbation; R45.851 Suicidal ideations; I10 Essential (primary) hypertension; F14.10 Cocaine abuse, uncomplicated; E03.9 Hypothyroidism, unspecified; E78.5 Hyperlipidemia, unspecified; F17.210 Nicotine dependence, cigarettes, uncomplicated; F32.9 Major depressive disorder, single episode, unspecified
CPT/HCPCS: 80048; 80061; 83036; 94640; 94664; J7512

== ENCOUNTER 2017-02-12 10:13 | Inpatient (IN) | payer OTHER ==
[~2017-02-12] VITALS: Ht 175.3 cm; Wt 110.0 kg
[~2017-02-12 10:13] MED LIST changes: +ASPI81TA11 PO; +Amitriptyline PO; +BACTOIN EACH NARE; +CLON.1 PO; +EFFE150C PO; +HYDR25TA5 PO; -HYDR50TA3 PO; +LIPI80TA PO; +PANT20 PO; +POTA-243 PO; -POTA10TA2 PO; +SPIRCAP INH; +THERTAB15 PO
[2017-02-12 10:15] VITALS: BP 99/64; PULSE 64; RESP 20; TEMP 98.3; O2SAT 94
[2017-02-12] MEDS ORDERED: SODIUM CHLOR 0.9% 1000 ML INJ 1,000 ML IV ONE (10:18)
[2017-02-12] MEDS ORDERED: ONDANSETRON HCL 4 MG/2 ML VIAL IV PUSH ONE (10:30)
[2017-02-12] MEDS ORDERED: NALOXONE HCL 0.4 MG/ML AMP IV PUSH PRN (10:30)
[2017-02-12] MEDS ORDERED: SODIUM CHLORIDE 0.9% FLUSH 10 ML FLUSH IVF PRN (10:30)
--- NOTE | 2017-02-12 10:42 | RADRPT ---
EXAM DATE/TIME: 02/12/2017 10:24 [facility] COMPARISON: CHEST SINGLE AP, December 22, 2016, 11:47. INDICATIONS : Short of breath, nausea. MEDICAL HISTORY : Chronic obstructive pulmonary disease. SURGICAL HISTORY : None. ENCOUNTER: Initial ACUITY: 1 day PAIN SCORE: 0/10 LOCATION: Bilateral chest FINDINGS: A single view of the chest demonstrates the lungs to be symmetrically aerated without evidence of mas s, infiltrate or effusion. The cardiomediastinal contours are unremarkable. Osseous structures are intact. CONCLUSION: No acute disease. Bertrand Urena MD on February 12, 2017 at 10:41 Board Certified Radiologist. This report was verified electronically.
[2017-02-12 10:44] LABS: AUTOMATED NEUTROPHIL # 3.9 TH/MM3 (1.8-7.7); BASOPHIL % 0.5 % (0.0-2.0); EOSINOPHIL # 0.2 TH/MM3 (0-0.4); EOSINOPHIL % 2.3 % (0.0-4.0); HEMATOCRIT 44.8 % (39.0-51.0); HEMO FLAGS DIFF FINAL; LYMPH % 35.4 % (9.0-44.0); LYMPHOCYTE # 2.5 TH/MM3 (1.0-4.8); MEAN CORPUSCULAR HEMOGLOBIN 31.2 PG (27.0-34.0); MEAN CORPUSCULAR HGB CONC 34.3 % (32.0-36.0); MONO % 7.6 % (0.0-8.0); NEUT % 54.2 % (16.0-70.0); PLATELET COUNT 176 TH/MM3 (150-450); RED BLOOD COUNT 4.92 MIL/MM3 (4.50-5.90); RED CELL DISTRIBUTION WIDTH 13.7 % (11.6-17.2); WHITE BLOOD COUNT 7.1 TH/MM3 (4.0-11.0)
[2017-02-12] MEDS ORDERED: AMIT50TA3 PO (10:46)
[2017-02-12 11:07] LABS: ANION GAP 11 MEQ/L (5-15)
[2017-02-12 11:10] LABS: ACETAMINOPHEN LESS THAN 2.0 MCG/ML (10.0-30.0); ALKALINE PHOSPHATASE 51 U/L (45-117); ALT (GPT) 54 U/L (12-78); AST (GOT) 17 U/L (15-37); BICARBONATE 23.6 MEQ/L (21.0-32.0); BLOOD UREA NITROGEN 13 MG/DL (7-18); CHLORIDE 106 MEQ/L (98-107); GLOMERULAR FILTRATION RATE 57 ML/MIN (>89); POTASSIUM 3.8 MEQ/L (3.5-5.1); SODIUM (NA) 141 MEQ/L (136-145); TOTAL BILIRUBIN ADULT 0.4 MG/DL (0.2-1.0)
[2017-02-12 11:55] LABS: AMPHETAMINE, URINE NEG (NEG); BARBITURATES, URINE NEG (NEG); COCAINE, URINE NEG (NEG)
--- NOTE | 2017-02-12 12:16 | PD ---
HPI Chief Complaint: Chest Pain Time Seen by Provider: 10:18 Travel History International Travel<30 days: No Contact w/Intl Traveler<30days: No Traveled to known affect area: No History of Present Illness HPI 61-year-old male arrives by EMS. He was gambling with an electronic card machine when he developed sudden onset chest pain. He became generally weak and felt as though he were going to pass out. He reports one loose bowel movement. He then laid on the ground, too weak to do anything else evidently. He was quite diaphoretic. EMS notes the patient's EKG showed no ischemia. His GCS is 15 on scene. His heart rate was in the 60s. His blood sugar was 143 on scene. En route his blood pressure dropped from 120 systolic to 105 systolic and he ate the same time had left jaw pain evidently quite severe for him. He reports drinking one beer this morning. PFSH Past Medical History Hx Anticoagulant Therapy: Yes Arthritis: No Asthma: No Autoimmune Disease: No Anxiety: Yes Depression: Yes Heart Rhythm Problems: No Cancer: No Cardiovascular Problems: No High Cholesterol: Yes Chemotherapy: No Chest Pain: No Congestive Heart Failure: No COPD: Yes Diabetes: No Diminished Hearing: No Endocrine: No Gastrointestinal Disorders: Yes GERD: Yes Genitourinary: No Headaches: No Hiatal Hernia: Yes Hypertension: Yes Immune Disorder: No Kidney Stones: No Musculoskeletal: Yes (knee injury) Neurologic: No Psychiatric: Yes (PTSD, depression, multiple suicide attempts) Respiratory: Yes (copd) Radiation Therapy: No Renal Failure: No Seizures: No Sickle Cell Disease: No Sleep Apnea: Yes Thyroid Disease: No Ulcer: No Tetanus Vaccination: < 5 Years Influenza Vaccination: Yes Past Surgical History Abdominal Surgery: Yes (hernia repair) AICD: No Cardiac Surgery: No Ear Surgery: No Endocrine Surgery: No Eye Surgery: No Genitourinary Surgery: Yes Joint Replacement: No Pacemaker: No Thoracic Surgery: No Social History Alcohol Use: Yes (WEEKLY) Tobacco Use: Yes (1.5PPD) Substance Use: No (HX OF) Allergies-Medications (Allergen,Severity, Reaction): Coded Allergies: Codeine (Verified Adverse Reaction, Severe, Nausea/Vomiting, 02/12/17) *MDRO Multi-Drug Resistant Organism (Verified Adverse Reaction, Unknown, MRSA, 02/12/17) MRSA PCR (nares) POSITIVE - 12/22/16 Reported Meds & Prescriptions Reported Meds & Active Scripts Active Effexor XR 24 HR (Venlafaxine HCl) 150 Mg Cap 150 Mg PO DAILY Spiriva Handihaler (Tiotropium Inh) 18 Mcg Cap 18 Mcg INH DAILY Prednisone 20 Mg Tab 40 Mg PO 2 DAILY Klor-Con 10 (Potassium Chloride) 10 Meq Tab 10 Meq PO DAILY Protonix (Pantoprazole Sodium) 20 Mg Tab 20 Mg PO DAILY Bactroban Nasal Oint (Mupirocin Nasal Oint) 2% Oint 1 Applic EACH NARE BID Thera/Beta-Carotene (Multiple Vitamin) 1 Tab Tab 1 Tab PO DAILY Levothyroxine (Levothyroxine Sodium) 25 Mcg Tab 25 Mcg PO DAILY@06 Hydrochlorothiazide 25 Mg Tab 25 Mg PO DAILY Catapres (Clonidine) 0.1 Mg Tab 0.1 Mg PO TID Symbicort Inh (Budesonide/Formoterol Fumarate) 160-4.5 Mcg/Act Aero 2 Puff INH BID Lipitor (Atorvastatin Calcium) 80 Mg Tab 80 Mg PO HS Aspirin EC (Aspirin) 81 Mg Tabdr 81 Mg PO DAILY Duoneb (Ipratropium-Albuterol Neb) 0.5-2.5 Mg/3 Ml Neb 1 Ampule NEB QID NEB Reported Amitriptyline (Amitriptyline HCl) 50 Mg Tab 50 Mg PO HS Trazodone (Trazodone HCl) 100 Mg Tab 150 Mg PO HS Prazosin (Prazosin HCl) 5 Mg Cap 10 Mg PO HS Omeprazole 20 Mg Tab 20 Mg PO DAILY Atrovent HFA 12.9 GM Inh (Ipratropium [place]) 17 Mcg/Act Aer 2 Puff INH BID Amlodipine (Amlodipine Besylate) 10 Mg Tab 10 Mg PO DAILY Review of Systems Except as stated in HPI: all other systems reviewed are Neg General / Constitutional: No: Fever Cardiovascular: Positive: Chest Pain or Discomfort, Diaphoresis Physical Exam Narrative GENERAL: 61-year-old male pleasant mild to moderate distress SKIN: Diaphoretic. Somewhat cool. HEAD: Atraumatic. Normocephalic. EYES: Pupils equal and round. No scleral icterus. No injection or drainage. ENT: No nasal bleeding or discharge. Mucous membranes pink and moist. NECK: Trachea midline. No JVD. CARDIOVASCULAR: Heart rate approximately 60-70. RESPIRATORY: No accessory muscle use. Clear to auscultation. Breath sounds equal bilaterally. GASTROINTESTINAL: Abdomen soft, non-tender, nondistended. Hepatic and splenic margins not palpable. MUSCULOSKELETAL: No obvious deformities. No clubbing. No cyanosis. No edema. NEUROLOGICAL: Awake and alert. No obvious cranial nerve deficits. Motor grossly within normal limits. Normal speech. PSYCHIATRIC: Appropriate mood and affect; insight and judgment normal. Data Data Last Documented VS Vital Signs Date Time Temp Pulse Resp B/P Pulse Ox O2 Delivery O2 Flow Rate FiO2 02/12/17 10:15 98.3 64 20 99/64 94 Vital signs reviewed Orders Electrocardiogram (02/12/17 ) Complete Blood Count With Diff (02/12/17 10:18) Comprehensive Metabolic Panel (02/12/17 10:18) Chest, Single Ap (02/12/17 10:18) Blood Glucose (02/12/17 10:18) Iv Access Insert/Monitor (02/12/17 10:18) Ecg Monitoring (02/12/17 10:18) Oximetry (02/12/17 10:18) Sodium Chloride 0.9% Flush (Ns Flush) (02/12/17 10:30) Sodium Chlor 0.9% 1000 Ml Inj (Ns 1000 M (02/12/17 10:18) Drug Screen, Random Urine (02/12/17 10:18) Alcohol (Ethanol) (02/12/17 10:18) Salicylates (Aspirin) (02/12/17 10:18) Tylenol (Acetaminophen) (02/12/17 10:18) Naloxone Inj (Narcan Inj) (02/12/17 10:30) Ondansetron Inj (Zofran Inj) (02/12/17 10:30) Ckmb (Isoenzyme) Profile (02/12/17 12:12) Troponin I (02/12/17 12:12) Ct Pulmonary Angiogram (02/12/17 12:12) Iohexol 350 Inj (Omnipaque 350 Inj) (02/12/17 13:04) Admit Order (Ed Use Only) (02/12/17 13:13) Labs Laboratory Tests Test 02/12/17 02/12/17 10:20 11:10 White Blood Count 7.1 TH/MM3 Red Blood Count 4.92 MIL/MM3 Hemoglobin 15.4 GM/DL Hematocrit 44.8 % Mean Corpuscular Volume 91.0 FL Mean Corpuscular Hemoglobin 31.2 PG Mean Corpuscular Hemoglobin 34.3 % Concent Red Cell Distribution Width 13.7 % Platelet Count 176 TH/MM3 Mean Platelet Volume 8.8 FL Neutrophils (%) (Auto) 54.2 % Lymphocytes (%) (Auto) 35.4 % Monocytes (%) (Auto) 7.6 % Eosinophils (%) (Auto) 2.3 % Basophils (%) (Auto) 0.5 % Neutrophils # (Auto) 3.9 TH/MM3 Lymphocytes # (Auto) 2.5 TH/MM3 Monocytes # (Auto) 0.5 TH/MM3 Eosinophils # (Auto) 0.2 TH/MM3 Basophils # (Auto) 0.0 TH/MM3 CBC Comment DIFF FINAL Differential Comment Sodium Level 141 MEQ/L Potassium Level 3.8 MEQ/L Chloride Level 106 MEQ/L Carbon Dioxide Level 23.6 MEQ/L Anion Gap 11 MEQ/L Blood Urea Nitrogen 13 MG/DL Creatinine 1.29 MG/DL Estimat Glomerular Filtration 57 ML/MIN Rate Random Glucose 151 MG/DL Calcium Level 8.7 MG/DL Total Bilirubin 0.4 MG/DL Aspartate Amino Transf 17 U/L (AST/SGOT) Alanine Aminotransferase 54 U/L (ALT/SGPT) Alkaline Phosphatase 51 U/L Total Creatine Kinase 46 U/L Troponin I LESS THAN 0.02 NG/ML Total Protein 7.1 GM/DL Albumin 3.9 GM/DL Salicylates Level 4.5 MG/DL Acetaminophen Level LESS THAN 2.0 MCG/ML Ethyl Alcohol Level 7 MG/DL Urine Opiates Screen NEG Urine Barbiturates Screen NEG Urine Amphetamines Screen NEG Urine Benzodiazepines Screen NEG Urine Cocaine Screen NEG Urine Cannabinoids Screen NEG [facility] Medical Decision Making Medical Screen Exam Complete: Yes Emergency Medical Condition: Yes Medical Record Reviewed: Yes Differential Diagnosis NSTEMI, unstable angina, coronary vasospasm, PE, PTX, aortic dissection, pericarditis, myocarditis, endocarditis, PNA, esophageal disease, aneurysm, musculoskeletal etiologies, anxiety, cocaine/sympathomimetic abuse Narrative Course CBC & BMP Diagram 02/12/17 10:20 EKG reveals sinus bradycardia at a rate of 59 normal axis and intervals Troponin undetectable LFTs unremarkable Urine drug screen negative Ethyl alcohol 7 Salicylates and Tylenol are both unremarkable Last [address] Angiography 02/12/17 1212 Signed Impressions: Service Date/Time: Sunday, February 12, 2017 12:41 - CONCLUSION: Left thyroid mass. No evidence for pulmonary embolism. Bertrand Urena MD Chest X-Ray 02/12/17 1018 Signed Impressions: Service Date/Time: Sunday, February 12, 2017 10:24 - CONCLUSION: No acute disease. Bertrand Urena MD The patient will be admitted for monitoring and serial enzymes. Etiology of his altered mental status/near syncopal type event unclear. Admission for monitoring, serial enzymes considered most appropriate disposition. D/w Dr Canales for FMR. Diagnosis Primary Impression: Altered mental status Qualified Code: R41.82 - Altered mental status, unspecified altered mental status type Additional Impression: Chest pain Qualified Code: R07.9 - Chest pain, unspecified type Admitting Information Admitting Physician Requests: Zac Rodas MD Feb 12, 2017 12:16
[2017-02-12] MEDS ORDERED: IOHEXOL 350 MG/ML 10 ML VIAL (for RAD DIAG) IV ONE (13:04)
[2017-02-12 13:05] LABS: CREATINE KINASE 46 U/L (39-308)
--- NOTE | 2017-02-12 13:07 | RADRPT ---
EXAM DATE/TIME: 02/12/2017 12:41 [facility] COMPARISON: CHEST SINGLE AP, February 12, 2017, 10:24. INDICATIONS : Chest pain that radiates to jaw,near syncope and general weakness. IV CONTRAST: 68 cc Omnipaque 350 (iohexol) IV RADIATION DOSE: 23.21 CTDIvol (mGy) MEDICAL HISTORY : Hepatitis C. Hypertension. Chronic obstructive pulmonary disease. SURGICAL HISTORY : Hernia repair ENCOUNTER: Initial ACUITY: 1 day PAIN SCALE: 5/10 LOCATION: chest TECHNIQUE: Volumetric scanning of the chest was performed using a pulmonary embolism protocol MIP images were re constructed. Using automated exposure control and adjustment of the mA and/or kV according to patien t size, radiation dose was kept as low as reasonably achievable to obtain optimal diagnostic quality images. FINDINGS: There is no evidence of pneumonia or pneumothorax. There is a large left thyroid mass measuring 4.3 x 4.2 cm in transverse dimension with deviation of the trachea to the right of midline. No adenopathy. There is no evidence for pulmonary embolism. CONCLUSION: Left thyroid mass. No evidence for pulmonary embolism. Bertrand Urena MD on February 12, 2017 at 13:04 Board Certified Radiologist. This report was verified electronically.
[2017-02-12 14:46] VITALS: BP 114/61; PULSE 58; RESP 20; O2SAT 98
--- NOTE | 2017-02-13 11:54 | EKG ---
Date Performed: 02/12/2017 Time Performed: 10:21:13 PTAGE: 61 years EKG: SINUS BRADYCARDIA BORDERLINE ECG PREVIOUS TRACING : 12/22/2016 14.30 DOCTOR: Zechariah Hughes Interpretating Date/Time 02/13/2017 11:46:57
== END 2017-02-12 15:11 | disposition left against medical advice (07) | DRG 312 ==
LOC: NEPE 10:13 → NEDA 13:15
PROVIDERS: ADMIT Family Medicine; ATTEND Family Medicine
DX: R55 Syncope and collapse (principal); R41.82 Altered mental status, unspecified; R07.9 Chest pain, unspecified; R68.84 Jaw pain; F32.9 Major depressive disorder, single episode, unspecified; J44.9 Chronic obstructive pulmonary disease, unspecified; I10 Essential (primary) hypertension; F41.9 Anxiety disorder, unspecified; E78.00 Pure hypercholesterolemia, unspecified; K21.9 Gastro-esophageal reflux disease without esophagitis; F43.10 Post-traumatic stress disorder, unspecified; G47.30 Sleep apnea, unspecified; F17.210 Nicotine dependence, cigarettes, uncomplicated; R61 Generalized hyperhidrosis; Z91.5 Personal history of self-harm; Z88.5 Allergy status to narcotic agent; Z86.14 Personal history of Methicillin resistant Staphylococcus aureus infection
CPT/HCPCS: 71010; 71275; 80053; 80307; 82550; 84484; 85025; 93005; 96361; 96374; 96375; J2310; J2405; J7030; Q9967

== ENCOUNTER 2017-07-12 11:03 | Inpatient (IN) | payer OTHER ==
[~2017-07-12] VITALS: Ht 175.3 cm; Wt 107.6 kg
[~2017-07-12 11:03] MED LIST changes: +AMIT50TA3 PO; -ASPI81TA2 PO; -ATOR1TAB18 PO; -Amitriptyline PO; -CLON0.1T PO; -LEVA750T PO; -MULT-135 PO; -VENL75TA PO
[2017-07-12 11:04] VITALS: BP 186/110; PULSE 95; RESP 20; TEMP 99.6; O2SAT 94
--- NOTE | 2017-07-12 11:13 | PD ---
Physical Exam Date Seen by Provider: Jul 12, 2017 Time Seen by Provider: 11:11 Narrative 62 yowm requesting psych screen. PTSD and feeling suicidal VS NOTED WAITING FOR BED PLACEMENT Data Data Last Documented VS Vital Signs Date Time Temp Pulse Resp B/P (MAP) Pulse Ox O2 Delivery O2 Flow Rate FiO2 07/12/17 11:04 99.6 95 20 186/110 (135) 94 Room Air MDM Medical Record Reviewed: No Supervised Visit with DAVID: Yes Alberto Montelongo Jul 12, 2017 11:13
[2017-07-12 11:30] VITALS: BP 134/84; PULSE 86; RESP 16; O2SAT 94
--- NOTE | 2017-07-12 11:55 | PD ---
HPI Chief Complaint: Suicide Ideation/Attempt Time Seen by Provider: 11:26 Travel History International Travel<30 days: No Contact w/Intl Traveler<30days: No Traveled to known affect area: No History of Present Illness HPI This is a 62-year-old male who presents to the emergency department requesting a psychiatric evaluation. He says over the past 2 days he has gotten increasingly depressed, hopeless and helpless feeling worthless. He reports that if he can get over to one of his friends places he would take a gun and shoot himself in the head. He's tried to kill himself in the past. He tried to overdose on medications in the past. He is thinking about doing that but he wanted to come in to get help. He spoke to his counselor at the [place] who recommended he come to the emergency department. He also has been using more drugs and alcohol. He admits to using cocaine and marijuana and drinking alcohol. PFSH Past Medical History Hx Anticoagulant Therapy: Yes Arthritis: No Asthma: No Autoimmune Disease: No Anxiety: Yes (PTSD) Depression: Yes Heart Rhythm Problems: No Cancer: No Cardiovascular Problems: No High Cholesterol: Yes Chemotherapy: No Chest Pain: No Congestive Heart Failure: No COPD: Yes Diabetes: No Diminished Hearing: No Endocrine: No Gastrointestinal Disorders: Yes GERD: Yes Genitourinary: No Headaches: No Hiatal Hernia: Yes Hypertension: Yes Immune Disorder: No Kidney Stones: No Musculoskeletal: Yes (knee injury) Neurologic: No Psychiatric: Yes (PTSD, depression, multiple suicide attempts) Respiratory: Yes (copd) Radiation Therapy: No Renal Failure: No Seizures: No Sickle Cell Disease: No Sleep Apnea: Yes Thyroid Disease: No Ulcer: No Influenza Vaccination: Yes Past Surgical History Abdominal Surgery: Yes (hernia repair) AICD: No Cardiac Surgery: No Ear Surgery: No Endocrine Surgery: No Eye Surgery: No Genitourinary Surgery: Yes Joint Replacement: No Pacemaker: No Thoracic Surgery: No Other Surgery: Yes (THYROID CANCER SURGERY (1/2 THYROIDECTOMY)) Social History Alcohol Use: Yes (WEEKLY) Tobacco Use: Yes (1.5PPD) Substance Use: Yes (HX OF COCAINE AND MARIJUANA) Allergies-Medications (Allergen,Severity, Reaction): Coded Allergies: codeine (Unverified Adverse Reaction, Severe, Nausea/Vomiting, 07/12/17) *MDRO Multi-Drug Resistant Organism (Verified Adverse Reaction, Unknown, MRSA, 07/12/17) MRSA PCR (nares) POSITIVE - 12/22/16 Reported Meds & Prescriptions Reported Meds & Active Scripts Active Effexor XR 24 HR (Venlafaxine HCl) 150 Mg Cap 150 Mg PO DAILY Klor-Con 10 (Potassium Chloride) 10 Meq Tab 10 Meq PO DAILY Thera/Beta-Carotene (Multiple Vitamin) 1 Tab Tab 1 Tab PO DAILY Levothyroxine (Levothyroxine Sodium) 25 Mcg Tab 25 Mcg PO DAILY@06 Catapres (Clonidine) 0.1 Mg Tab 0.1 Mg PO TID Symbicort Inh (Budesonide/Formoterol Fumarate) 160-4.5 Mcg/Act Aero 2 Puff INH BID Lipitor (Atorvastatin Calcium) 80 Mg Tab 80 Mg PO HS Aspirin EC (Aspirin) 81 Mg Tabdr 81 Mg PO DAILY Reported Hydrochlorothiazide 50 Mg Tab 50 Mg PO DAILY Amitriptyline (Amitriptyline HCl) 50 Mg Tab 50 Mg PO HS Prazosin (Prazosin HCl) 5 Mg Cap 10 Mg PO HS Omeprazole 20 Mg Tab 20 Mg PO DAILY Take 30 minutes before meal Atrovent HFA 12.9 GM Inh (Ipratropium [place]) 17 Mcg/Act Aer 2 Puff INH BID Amlodipine (Amlodipine Besylate) 10 Mg Tab 10 Mg PO DAILY Review of Systems Except as stated in HPI: all other systems reviewed are Neg Physical Exam Narrative GENERAL:Well appearing, no acute distress SKIN: Focused skin assessment warm and dry. HEAD: Atraumatic. Normocephalic. EYES: Pupils equal and round. No injection or drainage. ENT: Moist mucous membranes NECK: Trachea midline. CARDIOVASCULAR: Regular rate and rhythm. No murmur appreciated. RESPIRATORY: Clear to auscultation. Breath sounds equal bilaterally. GASTROINTESTINAL: Abdomen soft, non-tender, nondistended. MUSCULOSKELETAL: No obvious deformities. NEUROLOGICAL: Awake and alert. No obvious cranial nerve deficits. Moving all extremities. PSYCHIATRIC: Depressed mood, expressing suicidal ideation Data Data Last Documented VS Vital Signs Date Time Temp Pulse Resp B/P (MAP) Pulse Ox O2 Delivery O2 Flow Rate FiO2 07/12/17 11:30 86 16 134/84 (101) 94 Room Air 07/12/17 11:04 99.6 Orders Orders Complete Blood Count With Diff (07/12/17 11:30) Comprehensive Metabolic Panel (07/12/17 11:30) ^ Insert Iv (07/12/17 11:30) Psych Screen (07/12/17 11:30) Drug Screen, Random Urine (07/12/17 11:30) Alcohol (Ethanol) (07/12/17 11:30) Diet Regular Basic (07/12/17 Lunch) Labs Laboratory Tests Test 07/12/17 11:48 White Blood Count 12.2 TH/MM3 Red Blood Count 4.98 MIL/MM3 Hemoglobin 16.3 GM/DL Hematocrit 46.7 % Mean Corpuscular Volume 93.7 FL Mean Corpuscular Hemoglobin 32.7 PG Mean Corpuscular Hemoglobin Concent 34.9 % Red Cell Distribution Width 13.7 % Platelet Count 231 TH/MM3 Mean Platelet Volume 8.5 FL Neutrophils (%) (Auto) 67.7 % Lymphocytes (%) (Auto) 23.6 % Monocytes (%) (Auto) 7.1 % Eosinophils (%) (Auto) 1.1 % Basophils (%) (Auto) 0.5 % Neutrophils # (Auto) 8.3 TH/MM3 Lymphocytes # (Auto) 2.9 TH/MM3 Monocytes # (Auto) 0.9 TH/MM3 Eosinophils # (Auto) 0.1 TH/MM3 Basophils # (Auto) 0.1 TH/MM3 CBC Comment DIFF FINAL Differential Comment Blood Urea Nitrogen 18 MG/DL Creatinine 1.11 MG/DL Random Glucose 96 MG/DL Total Protein 7.7 GM/DL Albumin 3.9 GM/DL Calcium Level 8.4 MG/DL Alkaline Phosphatase 63 U/L Aspartate Amino Transf (AST/SGOT) 14 U/L Alanine Aminotransferase (ALT/SGPT) 55 U/L Total Bilirubin 0.9 MG/DL Sodium Level 142 MEQ/L Potassium Level 3.6 MEQ/L Chloride Level 108 MEQ/L Carbon Dioxide Level 27.0 MEQ/L Anion Gap 7 MEQ/L Estimat Glomerular Filtration Rate 67 ML/MIN Urine Opiates Screen NEG Urine Barbiturates Screen NEG Urine Amphetamines Screen NEG Urine Benzodiazepines Screen NEG Urine Cocaine Screen POS Urine Cannabinoids Screen POS Ethyl Alcohol Level LESS THAN 3 MG/DL MDM Medical Decision Making Medical Screen Exam Complete: Yes Emergency Medical Condition: Yes Interpretation(s) Afebrile, mild tachycardia, hypertensive Mild leukocytosis Electrolytes are reassuring Urine drug screen is positive for cocaine and cannabinoid Alcohols negative Differential Diagnosis Alcohol intoxication, drug intoxication, substance induced mood disorder, adjustment reaction, depression Narrative Course This is a 62-year-old male who presents to the emergency department with depression. He does have a history of intentional overdose in the past. He does appear somewhat depressed. I think he would benefit from psychiatric evaluation. Currently he is voluntary and I think he is capable of making his own decisions. He has no active medical problems. Silke Ruffin MD Jul 12, 2017 11:55
[2017-07-12 12:07] LABS: AUTOMATED NEUTROPHIL # 8.3 TH/MM3 (1.8-7.7); BASOPHIL # 0.1 TH/MM3 (0-0.2); BASOPHIL % 0.5 % (0.0-2.0); EOSINOPHIL # 0.1 TH/MM3 (0-0.4); EOSINOPHIL % 1.1 % (0.0-4.0); HEMATOCRIT 46.7 % (39.0-51.0); HEMO FLAGS DIFF FINAL; LYMPH % 23.6 % (9.0-44.0); LYMPHOCYTE # 2.9 TH/MM3 (1.0-4.8); MEAN CELL VOLUME 93.7 FL (80.0-100.0); MEAN CORPUSCULAR HEMOGLOBIN 32.7 PG (27.0-34.0); MEAN CORPUSCULAR HGB CONC 34.9 % (32.0-36.0); MONO % 7.1 % (0.0-8.0); NEUT % 67.7 % (16.0-70.0); PLATELET COUNT 231 TH/MM3 (150-450); RED BLOOD COUNT 4.98 MIL/MM3 (4.50-5.90); RED CELL DISTRIBUTION WIDTH 13.7 % (11.6-17.2); WHITE BLOOD COUNT 12.2 TH/MM3 (4.0-11.0)
[2017-07-12] MEDS ORDERED: HYDR50TA3 PO (12:15)
[2017-07-12 12:27] LABS: ANION GAP 7 MEQ/L (5-15); AST (GOT) 14 U/L (15-37); BLOOD UREA NITROGEN 18 MG/DL (7-18); CHLORIDE 108 MEQ/L (98-107); GLOMERULAR FILTRATION RATE 67 ML/MIN (>89); POTASSIUM 3.6 MEQ/L (3.5-5.1); SODIUM (NA) 142 MEQ/L (136-145)
[2017-07-12 12:31] LABS: ALKALINE PHOSPHATASE 63 U/L (45-117); ALT (GPT) 55 U/L (12-78); TOTAL BILIRUBIN ADULT 0.9 MG/DL (0.2-1.0)
[2017-07-12 12:43] LABS: ALCOHOL LESS THAN 3 MG/DL (0-5)
[2017-07-12 18:10] VITALS: BP 153/76; PULSE 65; RESP 16; O2SAT 95
[2017-07-12 21:13] VITALS: BP 142/77; PULSE 60; RESP 20; TEMP 98.2; O2SAT 99
[2017-07-13 02:16] VITALS: BP 129/80; PULSE 56; RESP 17; O2SAT 98
[2017-07-13 06:33] VITALS: BP 138/76; PULSE 57; RESP 18; O2SAT 98
[2017-07-13 09:51] VITALS: BP 131/68; PULSE 58; RESP 18
[2017-07-13] MEDS ORDERED: ACETAMINOPHEN 325 MG TAB PO PRN (10:15)
[2017-07-13] MEDS ORDERED: MAGNESIUM HYDROXIDE SUSP 30 ML CUP PO PRN (10:15)
[2017-07-13] MEDS ORDERED: LORazepam 2 MG/ML VIAL IM PRN (10:15)
[2017-07-13] MEDS ORDERED: ALUMINUM/MAGNESIUM/SIMETH 30 ML CUP PO PRN (10:15)
[2017-07-13] MEDS ORDERED: LORazepam 1 MG TAB PO PRN (10:15)
--- NOTE | 2017-07-13 10:15 | HHI.HP ---
Provisional Diagnosis Admission Date Jul 13, 2017 at 10:09 [place] I. PTSD Certification of Person's Competence To Provide Express and Informed Consent I have personally examined Stevo Tay , a person being served at [facility] on, Jul 13, 2017 10:14. Express and informed consent means consent voluntarily given in writing, by a competent person, after sufficient explanation and disclosure of the subject matter involved to enable the person to make a knowing and willful decision without any element of force, fraud, deceit, duress, or other form of constraint or coercion. This person is 18 years of age or older, is not now known to be incompetent to consent to treatment with a guardian advocate, and does not have a health care surrogate or proxy currently making medical treatment decisions. I have found this person to be one of the following: [x] Competent to provide express and informed consent, as defined above, for voluntary admission to this facility and is competent to provide express and informed consent for treatment. He/she has the consistent capacity to make well reasoned, willful, and knowing decisions concerning his or her medical or mental health treatment. The person fully and consistently understands the purpose of the admission for examination/placement and is fully capable of personally exercising all rights assured under [place] [] Incompetent to provide express and informed consent to voluntary admission, and this is incompetent to provide express and informed consent to treatment. The person must be transferred to involuntary status and a petition for a guardian advocate filed with the Circuit Court. [] Refusing to provide express and informed consent to voluntary admission but is competent to provide express and informed consent for treatment. The person must be discharged or transferred to involuntary status. Form shall be completed within 24 hours of a person's arrival at the receiving facility and filed in the clinical record of each person: 1. Admitted on a voluntary basis 2. Permitted to provide express and informed consent to his/her own treatment 3. Allowed to transfer from involuntary to voluntary status 4. Prior to permitting a person to consent to his or her own treatment after having been previously found incompetent to consent to treatment. History of Present Illness Capacity: Has Capacity HPI 62 yo male with multiyear history of posttraumatic stress disorder. Patient presents voluntarily due to severe depression over the last several days with suicidal ideation and plan. Patient has a friend who owns a gun and the patient has called his friend to ask if he can borrow a gun to shoot himself. (Apparently the friend has posttraumatic stress disorder as well.) The patient however is reluctant to be admitted at this time As he feels he was treated so poorly in the main emergency department. He initially wanted to go to the [facility] for treatment and then stated he would throw away his 16 different medicines. This physician indicated he would not be able to do so as he is demonstrating that by throwing away his medicines, he does not care to live. Patient then agreed to hospitalization. He describes feelings of depressed mood, suicidal ideation, anhedonia, decreased energy, diminished self- esteem, feelings of hopelessness and helplessness, insomnia with nightmares, etc. He feels his medications, including prazosin are not working. He admits to self-medicating over the last several days with alcohol, marijuana and cocaine. Patient has tried to kill himself through overdose in the past. Review of Systems Except as stated in HPI: all other systems reviewed are Neg Past Psych History Psychological trauma history trauma. trauma Violence risk - others (6 mos) Minimal Violence risk - self (6 mos) High Substance Abuse History Drugs/Alcohol past 12 months Recent substance abuse as indicated in the history of present illness. Past Family Social History Coded Allergies: codeine (Unverified Adverse Reaction, Severe, Nausea/Vomiting, 07/12/17) *MDRO Multi-Drug Resistant Organism (Verified Adverse Reaction, Unknown, MRSA, 07/12/17) MRSA PCR (nares) POSITIVE - 12/22/16 Active Scripts Venlafaxine ER 24 HR (Effexor XR 24 HR) 150 Mg Cap, 150 MG PO DAILY for health, #30 CAP 0 Refills Prov:Robby Ott MD 01/01/17 Potassium Chloride ER (Klor-Con 10) 10 Meq Tab, 10 MEQ PO DAILY for health, #30 TAB 0 Refills Prov:Robby Ott MD 01/01/17 Multiple Vitamin (Thera/Beta-Carotene) 1 Tab Tab, 1 TAB PO DAILY for health, # 30 TAB 0 Refills Prov:Robby Ott MD 01/01/17 Levothyroxine (Levothyroxine) 25 Mcg Tab, 25 MCG PO DAILY@06 for health, #30 TAB 0 Refills Prov:Robby Ott MD 01/01/17 Clonidine (Catapres) 0.1 Mg Tab, 0.1 MG PO TID for health, #90 TAB 0 Refills Prov:Robby Ott MD 01/01/17 Budesonide-Formoterol Inh (Symbicort Inh) 160-4.5 Mcg/Act Aero, 2 PUFF INH BID for health, #1 INHALER 0 Refills Prov:Robby Ott MD 01/01/17 Atorvastatin (Lipitor) 80 Mg Tab, 80 MG PO HS for health, #30 TAB 0 Refills Prov:Robby Ott MD 01/01/[address] (Aspirin EC) 81 Mg Tabdr, 81 MG PO DAILY for health, #30 TAB 0 Refills Prov:Robby Ott MD 01/01/17 Reported Medications Hydrochlorothiazide (Hydrochlorothiazide) 50 Mg Tab, 50 MG PO DAILY, #60 TAB 0 Refills 07/12/17 Amitriptyline (Amitriptyline) 50 Mg Tab, 50 MG PO HS for Control Depression, TAB 0 Refills 02/12/17 Prazosin (Prazosin) 5 Mg Cap, 10 MG PO HS for Blood Pressure Management, #60 CAP 0 Refills 12/22/16 Omeprazole (Omeprazole) 20 Mg Tab, 20 MG PO DAILY for Reflux, #30 TAB 0 Refills Take 30 minutes before meal 12/22/16 Ipratropium HFA 12.9 GM Inh (Atrovent HFA 12.9 GM Inh) 17 Mcg/Act Aer, 2 PUFF INH BID for Shortness of Breath, #1 INHALER 0 Refills 12/22/16 Amlodipine (Amlodipine) 10 Mg Tab, 10 MG PO DAILY for Blood Pressure Management , #30 TAB 0 Refills 12/22/16 Discontinued Scripts Tiotropium Inh (Spiriva Handihaler) 18 Mcg Cap, 18 MCG INH DAILY for health, # 30 CAP 0 Refills Prov:Robby Ott MD 01/01/17 Prednisone (Prednisone) 20 Mg Tab, 40 MG PO 2 daily for health, #60 TAB 0 Refills Prov:Robby Ott MD 01/01/17 Pantoprazole (Protonix) 20 Mg Tab, 20 MG PO DAILY for health, #30 TAB 0 Refills Prov:Robby Ott MD 01/01/17 Mupirocin Nasal Oint (Bactroban Nasal Oint) 2% Oint, 1 APPLIC EACH NARE BID for health, #1 TUBE 0 Refills Prov:Robby Ott MD 01/01/17 Ipratropium-Albuterol Neb (Duoneb) 0.5-2.5 Mg/3 Ml Neb, 1 AMPULE NEB QID NEB for Breathing Treatment, #120 ML Prov:Raymundo Ramirez MD 12/23/16 Current Medications Medications (Trade) Dose Ordered Sig/Anshu Route Start Time Stop Time Status Last Admin (Ativan) 1 mg Q6H PRN PO 07/13/17 10:15 UNV (Ativan Inj) 1 mg Q6H PRN IM 07/13/17 10:15 UNV (Tylenol) 650 mg Q4H PRN PO 07/13/17 10:15 UNV (Milk Of Magnesia Liq) 30 ml DAILY PRN PO 07/13/17 10:15 UNV (Mag-Al Plus Susp Liq) 30 ml Q6H PRN PO 07/13/17 10:15 UNV (Habitrol 21 Mg Patch.24 Hr) 1 patch DAILY T-DERMAL 07/14/17 09:00 UNV (Atarax) 50 mg Q6H PRN PO 07/13/17 10:15 UNV Miscellaneous Information 1 DAILY T-DERMAL 07/14/17 09:00 UNV Family History Positive for mood disorders and anxiety. Social History Lives alone. Service-connected benefits as a . Occasionally does abuse alcohol and drugs. Has family members including one that lives in [place]. Patient is not employed at this time. Patient's Strengths (min. 2) Verbal and has access to healthcare. Physical Exam GENERAL: SKIN: Warm and dry. HEAD: Normocephalic. EYES: No scleral icterus. No injection or drainage. NECK: Supple, trachea midline. No JVD or lymphadenopathy. CARDIOVASCULAR: Regular rate and rhythm without murmurs, gallops, or rubs. RESPIRATORY: Breath sounds equal bilaterally. No accessory muscle use. GASTROINTESTINAL: Abdomen soft, non-tender, nondistended. MUSCULOSKELETAL: No cyanosis, or edema. BACK: Nontender without obvious deformity. No CVA tenderness. Vital Signs Vital Signs Date Time Temp Pulse Resp B/P (MAP) Pulse Ox O2 Delivery O2 Flow Rate FiO2 07/13/17 09:51 58 18 131/68 (89) Room Air 07/13/17 06:33 98 07/12/17 21:13 98.2 Lab Results Test 07/12/17 11:48 White Blood Count 12.2 TH/MM3 Red Blood Count 4.98 MIL/MM3 Hemoglobin 16.3 GM/DL Hematocrit 46.7 % Mean Corpuscular Volume 93.7 FL Mean Corpuscular Hemoglobin 32.7 PG Mean Corpuscular Hemoglobin Concent 34.9 % Red Cell Distribution Width 13.7 % Platelet Count 231 TH/MM3 Mean Platelet Volume 8.5 FL Neutrophils (%) (Auto) 67.7 % Lymphocytes (%) (Auto) 23.6 % Monocytes (%) (Auto) 7.1 % Eosinophils (%) (Auto) 1.1 % Basophils (%) (Auto) 0.5 % Neutrophils # (Auto) 8.3 TH/MM3 Lymphocytes # (Auto) 2.9 TH/MM3 Monocytes # (Auto) 0.9 TH/MM3 Eosinophils # (Auto) 0.1 TH/MM3 Basophils # (Auto) 0.1 TH/MM3 CBC Comment DIFF FINAL Differential Comment Blood Urea Nitrogen 18 MG/DL Creatinine 1.11 MG/DL Random Glucose 96 MG/DL Total Protein 7.7 GM/DL Albumin 3.9 GM/DL Calcium Level 8.4 MG/DL Alkaline Phosphatase 63 U/L Aspartate Amino Transf (AST/SGOT) 14 U/L Alanine Aminotransferase (ALT/SGPT) 55 U/L Total Bilirubin 0.9 MG/DL Sodium Level 142 MEQ/L Potassium Level 3.6 MEQ/L Chloride Level 108 MEQ/L Carbon Dioxide Level 27.0 MEQ/L Anion Gap 7 MEQ/L Estimat Glomerular Filtration Rate 67 ML/MIN Urine Opiates Screen NEG Urine Barbiturates Screen NEG Urine Amphetamines Screen NEG Urine Benzodiazepines Screen NEG Urine Cocaine Screen POS Urine Cannabinoids Screen POS Ethyl Alcohol Level LESS THAN 3 MG/DL Mental Status Examination Speech: Unremarkable Orientation: x3 Memory: Unremarkable Thought Process: Organized, Goal Directed Thought Content: Unremarkable Hallucination Type: None Attention and Concentration: Good Suicidal Ideation: Yes Previous Suicide Attempts: Yes Homicidal Ideation: No Previous Homicide Attempts: No Insight: Fair Judgment: Impulsive Affect: Sad Affect if Inappropriate: Blunt Mood: Sad Motor Activity: Normal gait Assessment & Plan Problem List: (1) PTSD (post-traumatic stress disorder) ICD Codes: F43.10 - Post-traumatic stress disorder, unspecified Status: Acute Assessment & Plan Estimated LOS: days 62-year-old male with multiyear history of posttraumatic stress disorder presents with suicidality, plan to shoot himself, recent drug abuse, and history of previous suicide attempts. Patient is felt to be at high risk for self-harm and is therefore being admitted. Patient will have a comprehensive metabolic profile and CBC performed to determine if any metabolic issue or infectious process is causing or contributing to his depression. This physician also ordered thyroid stimulating hormone as patient has a history of thyroid disease. This physician also ordered a consult with the physical medicine hospitalist to evaluate the patient's thyroid condition and multiple medical problems, which might be contributing to his depression. Vitamin B-12 and vitamin D levels will also be obtained to determine if any vitamin deficiency is causing or creating or contributing to his depression. This physician spoke with the nurse , Rosalina, in the emergency department regarding the patient's recent behavior. This physician will also ask case management to obtain further information from family members and to assist with disposition planning. Finally, this physician has ordered an EKG due to the patient's age, obesity, drug abuse and psychotropic medicines. We will assess any conduction deficits and evaluate psychotropic medicines adverse effect on cardiac conduction. Jm Aguilera MD Jul 13, 2017 10:15
[2017-07-13] MEDS ORDERED: hydrOXYzine HCL 50 MG TAB PO PRN (11:00)
[2017-07-13] MEDS: VENLAFAXINE HCL XR 75 MG CAP PO SCH (11:00)
[2017-07-13] MEDS: POTASSIUM CHLORIDE 10 MEQ CONTROLLED RELEASE TAB PO SCH (11:00)
[2017-07-13] MEDS: PANTOPRAZOLE SOD 20 MG DELAYED RELEASE TAB PO SCH (11:00)
[2017-07-13] MEDS: ASPIRIN EC 81 MG TABEC PO SCH (11:00)
[2017-07-13] MEDS: MULTIVITAMIN TAB PO SCH (11:00)
[2017-07-13] MEDS: HYDROCHLOROTHIAZIDE 50 MG TAB PO SCH (11:00)
[2017-07-13] MEDS: BUDESONIDE-FORMOTEROL 160/4.5 MCG INHALER INH SCH ×2 (12:00→21:47)
[2017-07-13] MEDS ORDERED: IPRATROPIUM BROMIDE 17 MCG/ACT 12.9 GM INHALER INH SCH (12:00)
[2017-07-13] MEDS: cloNIDine HCL 0.1 MG TAB PO SCH ×2 (13:00→16:52)
[2017-07-13] MEDS: TIOTROPIUM BROMIDE 18 MCG INH INH SCH (13:00)
--- NOTE | 2017-07-13 18:21 | PD.CONS ---
HPI Service [facility] Hospitalists Consult Requested By Jm Aguilera M.D. Reason for Consult Medical management. Primary Care Physician [facility] Diagnoses: History of Present Illness Mr. Tay is 62 years old, with medical history inclusive of hypertension, hyperlipidemia, GERD, COPD, hypothyroid, thyroid cancer, PTSD, depression, cocaine use, and marijuana use. He reported having hepatitis C and having successfully been treated for it 3 years ago. He stated he is checked every 6 months since that time and and continues to have negative results. Mr. Tay was admitted to [facility] for suicidal ideation. Per the medical record, he had the intention of using a firearm to kill himself. Dr. Aguilera consulted the hospitalist team for medical management of Mr. Tay's chronic conditions. Upon interview, Mr. Tay was encountered sitting in bed receiving medication from nursing staff. Initially he endorsed only having hypothyroidism. However when the information from medical record was presented to him he did endorse the above history. He stated that his PTSD began as a result of his experience. He stated his COPD is stable and continues to smoke over a pack of cigarettes a day. He stated that his COPD does not interfere with his physical activities. Patient stated he does have high blood pressure and does not like to take his medication because "it makes me feel weird". Patient stated that his hypothyroidism has been of long-standing duration and that he has been diagnosed with thyroid cancer with partial thyroidectomy done within the past several years. Patient denied chest and abdominal pain, and nausea/vomiting/ diarrhea/constipation. Bowel movements were reported to be daily. Patient reported frequent urination at night as well as "dribbling". Patient stated he suspected he has an enlarged prostate but has not been checked for that by his primary care physician. Patient stated that he has a brother with similar condition. A 10 point review of systems was completed and, except as noted above, was negative. Review of Systems Except as stated in HPI: all other systems reviewed are Neg Past Family Social History Allergies: Coded Allergies: codeine (Unverified Adverse Reaction, Severe, Nausea/Vomiting, 07/12/17) *MDRO Multi-Drug Resistant Organism (Verified Adverse Reaction, Unknown, MRSA, 07/12/17) MRSA PCR (nares) POSITIVE - 12/22/16 Past Medical History COPD cocaine use depression GERD having hepatitis C (successfully treated) hypertension, hyperlipidemia hypothyroid marijuana use. PTSD thyroid cancer Past Surgical History Cartilage removed from right knee Right inguinal hernia repair Reported Medications Reported Meds & Active Scripts Active Effexor XR 24 HR (Venlafaxine HCl) 150 Mg Cap 150 Mg PO DAILY Klor-Con 10 (Potassium Chloride) 10 Meq Tab 10 Meq PO DAILY Thera/Beta-Carotene (Multiple Vitamin) 1 Tab Tab 1 Tab PO DAILY Levothyroxine (Levothyroxine Sodium) 25 Mcg Tab 25 Mcg PO DAILY@06 Catapres (Clonidine) 0.1 Mg Tab 0.1 Mg PO TID Symbicort Inh (Budesonide/Formoterol Fumarate) 160-4.5 Mcg/Act Aero 2 Puff INH BID Lipitor (Atorvastatin Calcium) 80 Mg Tab 80 Mg PO HS Aspirin EC (Aspirin) 81 Mg Tabdr 81 Mg PO DAILY Reported Hydrochlorothiazide 50 Mg Tab 50 Mg PO DAILY Amitriptyline (Amitriptyline HCl) 50 Mg Tab 50 Mg PO HS Prazosin (Prazosin HCl) 5 Mg Cap 10 Mg PO HS Omeprazole 20 Mg Tab 20 Mg PO DAILY Take 30 minutes before meal Atrovent HFA 12.9 GM Inh (Ipratropium [place]) 17 Mcg/Act Aer 2 Puff INH BID Amlodipine (Amlodipine Besylate) 10 Mg Tab 10 Mg PO DAILY Active Ordered Medications Current Medications Medications (Trade) Dose Ordered Sig/Anshu Route Start Time Stop Time Status Last Admin (Ativan) 1 mg Q6H PRN PO 07/13/17 10:15 (Ativan Inj) 1 mg Q6H PRN IM 07/13/17 10:15 (Tylenol) 650 mg Q4H PRN PO 07/13/17 10:15 (Milk Of Magnesia Liq) 30 ml DAILY PRN PO 07/13/17 10:15 (Mag-Al Plus Susp Liq) 30 ml Q6H PRN PO 07/13/17 10:15 (Atarax) 50 mg Q6H PRN PO 07/13/17 11:00 (Elavil) 50 mg HS PO 07/13/17 21:00 (Norvasc) 10 mg DAILY PO 07/13/17 11:00 07/13/17 11:00 (Ecotrin Ec) 81 mg DAILY PO 07/13/17 11:00 07/13/17 11:00 (Lipitor) 80 mg HS PO 07/13/17 21:00 (Symbicort 160-4.5 Inh) 2 puff BID INH 07/13/17 12:00 (Catapres) 0.1 mg TID PO 07/13/17 13:00 07/13/17 13:00 (Hydrodiuril) 50 mg DAILY PO 07/13/17 11:00 07/13/17 11:00 (Synthroid) 25 mcg DAILY@06 PO 07/14/17 06:00 (Theragran) 1 tab DAILY PO 07/13/17 11:00 07/13/17 11:00 (KCl) 10 meq DAILY PO 07/13/17 11:00 07/13/17 11:00 (Minipress) 10 mg HS PO 07/13/17 21:00 (Effexor Xr) 150 mg DAILY PO 07/13/17 11:00 07/13/17 11:00 (Protonix) 20 mg DAILY PO 07/13/17 11:00 07/13/17 11:00 (Spiriva Inh) 18 mcg DAILY INH 07/13/17 13:00 Family History Both parents had cancer of unknown type. Mr. Tay stated he is the only one that has mental health issues in the family and there is no previous familial history of psychiatric illness. Social History Current daily smoker of greater than one pack of cigarettes a day. History of alcohol use. History of cocaine and marijuana use. Physical Exam Vital Signs Vital Signs Date Time Temp Pulse Resp B/P (MAP) Pulse Ox O2 Delivery O2 Flow Rate FiO2 07/13/17 09:51 58 18 131/68 (89) Room Air 07/13/17 06:33 57 18 138/76 (96) 98 Room Air 07/13/17 02:16 56 17 129/80 (96) 98 Room Air 07/12/17 21:13 98.2 60 20 142/77 (98) 99 Room Air 07/12/17 18:58 07/12/17 18:10 65 16 153/76 (101) 95 Room Air Physical Exam GENERAL: This is a well-nourished, well-developed patient, in no apparent distress. SKIN: No rashes, ecchymoses or lesions. Cool and dry. HEAD: Atraumatic. Normocephalic. EYES: Pupils equal round and reactive. Extraocular motions intact. No scleral icterus. No injection or drainage. ENT: Nose without bleeding or purulent drainage. Airway patent. NECK: Trachea midline. No lymphadenopathy. Supple and nontender. CARDIOVASCULAR: Regular rate and rhythm without murmurs, gallops, or rubs. RESPIRATORY: Clear to auscultation. Breath sounds equal diminished bilaterally. No wheezes, rales, or rhonchi. GASTROINTESTINAL: Abdomen obese and soft, non-tender, nondistended. No hepato- splenomegaly or guarding. MUSCULOSKELETAL: Extremities without clubbing, cyanosis, or edema. No joint tenderness, effusion, or edema noted. NEUROLOGICAL: Awake and alert. Cranial nerves II through XII intact. Motor and sensory grossly within normal limits. Five out of 5 muscle strength in all muscle groups. Speech was clear and fluent. Laboratory Laboratory Tests Test 07/12/17 11:48 White Blood Count 12.2 TH/MM3 Red Blood Count 4.98 MIL/MM3 Hemoglobin 16.3 GM/DL Hematocrit 46.7 % Mean Corpuscular Volume 93.7 FL Mean Corpuscular Hemoglobin 32.7 PG Mean Corpuscular Hemoglobin Concent 34.9 % Red Cell Distribution Width 13.7 % Platelet Count 231 TH/MM3 Mean Platelet Volume 8.5 FL Neutrophils (%) (Auto) 67.7 % Lymphocytes (%) (Auto) 23.6 % Monocytes (%) (Auto) 7.1 % Eosinophils (%) (Auto) 1.1 % Basophils (%) (Auto) 0.5 % Neutrophils # (Auto) 8.3 TH/MM3 Lymphocytes # (Auto) 2.9 TH/MM3 Monocytes # (Auto) 0.9 TH/MM3 Eosinophils # (Auto) 0.1 TH/MM3 Basophils # (Auto) 0.1 TH/MM3 CBC Comment DIFF FINAL Differential Comment Blood Urea Nitrogen 18 MG/DL Creatinine 1.11 MG/DL Random Glucose 96 MG/DL Total Protein 7.7 GM/DL Albumin 3.9 GM/DL Calcium Level 8.4 MG/DL Alkaline Phosphatase 63 U/L Aspartate Amino Transf (AST/SGOT) 14 U/L Alanine Aminotransferase (ALT/SGPT) 55 U/L Total Bilirubin 0.9 MG/DL Sodium Level 142 MEQ/L Potassium Level 3.6 MEQ/L Chloride Level 108 MEQ/L Carbon Dioxide Level 27.0 MEQ/L Anion Gap 7 MEQ/L Estimat Glomerular Filtration Rate 67 ML/MIN Urine Opiates Screen NEG Urine Barbiturates Screen NEG Urine Amphetamines Screen NEG Urine Benzodiazepines Screen NEG Urine Cocaine Screen POS Urine Cannabinoids Screen POS Ethyl Alcohol Level LESS THAN 3 MG/DL Result Diagram: 07/12/17 1148 07/12/17 1148 Assessment and Plan Problem List: (1) PTSD (post-traumatic stress disorder) ICD Code: F43.10 - Post-traumatic stress disorder, unspecified Status: Acute (2) COPD (chronic obstructive pulmonary disease) ICD Code: J44.9 - Chronic obstructive pulmonary disease, unspecified Status: Chronic (3) Hypothyroidism ICD Code: E03.9 - Hypothyroidism, unspecified Status: Chronic (4) HTN (hypertension) ICD Code: I10 - Essential (primary) hypertension Status: Chronic (5) Hyperlipidemia ICD Code: E78.5 - Hyperlipidemia, unspecified Status: Chronic Assessment and Plan Mr. Tay is 62 years old, with medical history inclusive of hypertension, hyperlipidemia, GERD, COPD, hypothyroid, thyroid cancer, PTSD, depression, cocaine use, and marijuana use. He reported having hepatitis C and having successfully been treated for it 3 years ago. He stated he is checked every 6 months since that time and and continues to have negative results. Mr. Tay was admitted to [facility] psychiat[facility] for suicidal ideation. Per the medical record, he had the intention of using a firearm to kill himself. Dr. Aguilera consulted the hospitalist team for medical management of Mr. Tay's chronic conditions. PTSD -As per psychiatry. Nicotine addiction -Nicotine patch 21 mg daily. COPD -Stable -Spiriva 18 micrograms daily inhaled -Symbicort 2 puffs twice a day inhaled Hypertension -Clonidine 0.1 mg by mouth 3 times a day -Hydrochlorothiazide 50 mg by mouth daily -Amlodipine 10 mg by mouth daily BPH -Prazosin 10 mg by mouth daily at bedtime -PSA screen ordered Hyperlipidemia -Aspirin 81 mg by mouth daily -Atorvastatin 80 mg by mouth daily at bedtime Discussed Condition With Patient and Dr. Henson Problem Qualifiers (1) COPD (chronic obstructive pulmonary disease): Qualified Codes: J43.9 - Emphysema, unspecified (2) Hypothyroidism: Qualified Codes: E03.9 - Hypothyroidism, unspecified (3) HTN (hypertension): Qualified Codes: I10 - Essential (primary) hypertension (4) Hyperlipidemia: Qualified Codes: E78.5 - Hyperlipidemia, unspecified Doni Aparicio Jr. Jul 13, 2017 18:20
[2017-07-13] MEDS: AMITRIPTYLINE HCL 50 MG TAB PO SCH (21:46)
[2017-07-13] MEDS: ATORVASTATIN 80 MG TAB PO SCH (21:47)
[2017-07-13] MEDS: PRAZOSIN HCL 5 MG CAP PO SCH (21:50)
[2017-07-14 06:31] VITALS: BP 119/56; PULSE 59; RESP 17; TEMP 98.7; O2SAT 98
[2017-07-14] MEDS: LEVOTHYROXINE SODIUM 25 MCG TAB PO SCH (06:31)
[2017-07-14] MEDS: PANTOPRAZOLE SOD 20 MG DELAYED RELEASE TAB PO SCH (08:12)
[2017-07-14] MEDS: ASPIRIN EC 81 MG TABEC PO SCH (08:12)
[2017-07-14] MEDS: HYDROCHLOROTHIAZIDE 50 MG TAB PO SCH (08:12)
[2017-07-14] MEDS: POTASSIUM CHLORIDE 10 MEQ CONTROLLED RELEASE TAB PO SCH (08:12)
[2017-07-14] MEDS: MULTIVITAMIN TAB PO SCH (08:12)
[2017-07-14] MEDS: VENLAFAXINE HCL XR 75 MG CAP PO SCH (08:12)
[2017-07-14] MEDS: cloNIDine HCL 0.1 MG TAB PO SCH ×3 (08:12→16:53)
[2017-07-14] MEDS: BUDESONIDE-FORMOTEROL 160/4.5 MCG INHALER INH SCH ×2 (09:00→21:00)
[2017-07-14] MEDS ORDERED: NICOTINE 21 MG/24 HR PATCH T-DERMAL SCH (09:00)
[2017-07-14] MEDS ORDERED: REMOVE OLD PATCH T-DERMAL SCH (09:00)
[2017-07-14] MEDS: TIOTROPIUM BROMIDE 18 MCG INH INH SCH (09:00)
[2017-07-14 12:13] VITALS: BP 126/66; PULSE 57; RESP 18
[2017-07-14 12:39] LABS: AUTOMATED NEUTROPHIL # 3.8 TH/MM3 (1.8-7.7); BASOPHIL % 0.4 % (0.0-2.0); EOSINOPHIL # 0.1 TH/MM3 (0-0.4); HEMATOCRIT 44.2 % (39.0-51.0); HEMO FLAGS DIFF FINAL; LYMPH % 32.8 % (9.0-44.0); LYMPHOCYTE # 2.1 TH/MM3 (1.0-4.8); MEAN CELL VOLUME 93.1 FL (80.0-100.0); MEAN CORPUSCULAR HEMOGLOBIN 32.1 PG (27.0-34.0); MEAN CORPUSCULAR HGB CONC 34.5 % (32.0-36.0); MONO % 5.7 % (0.0-8.0); NEUT % 59.1 % (16.0-70.0); PLATELET COUNT 168 TH/MM3 (150-450); RED BLOOD COUNT 4.75 MIL/MM3 (4.50-5.90); RED CELL DISTRIBUTION WIDTH 13.3 % (11.6-17.2); WHITE BLOOD COUNT 6.4 TH/MM3 (4.0-11.0)
--- NOTE | 2017-07-14 12:52 | HHI.PYPN ---
Subjective Remarks Patient seen, case discussed with nurse and labs reviewed. Patient wants no medication changes. He is reclusive and not interested in improving his situation. Review of Systems Except as stated in HPI: all other systems reviewed are Neg Objective Alert: Yes [place]: Person, Place, Date, Situation Mood: Calm Affect: Euthymic Memory Intact: Immediate, Recent, Remote Hallucinations: Other Delusions: No Delusion Type: Other Suicidal: Ideation Homicidal: Ideation (no) Insight/Judgment Impaired Labs Test 07/14/17 10:53 White Blood Count 6.4 TH/MM3 Red Blood Count 4.75 MIL/MM3 Hemoglobin 15.2 GM/DL Hematocrit 44.2 % Mean Corpuscular Volume 93.1 FL Mean Corpuscular Hemoglobin 32.1 PG Mean Corpuscular Hemoglobin Concent 34.5 % Red Cell Distribution Width 13.3 % Platelet Count 168 TH/MM3 Mean Platelet Volume 8.1 FL Neutrophils (%) (Auto) 59.1 % Lymphocytes (%) (Auto) 32.8 % Monocytes (%) (Auto) 5.7 % Eosinophils (%) (Auto) 2.0 % Basophils (%) (Auto) 0.4 % Neutrophils # (Auto) 3.8 TH/MM3 Lymphocytes # (Auto) 2.1 TH/MM3 Monocytes # (Auto) 0.4 TH/MM3 Eosinophils # (Auto) 0.1 TH/MM3 Basophils # (Auto) 0.0 TH/MM3 CBC Comment DIFF FINAL Differential Comment Vitals/IOs Vital Signs Date Time Temp Pulse Resp B/P (MAP) Pulse Ox O2 Delivery O2 Flow Rate FiO2 07/14/17 12:13 57 18 126/66 (86) 07/14/17 06:31 98.7 98 07/13/17 09:51 Room Air Assessment & Plan Problem List: (1) PTSD (post-traumatic stress disorder) ICD Codes: F43.10 - Post-traumatic stress disorder, unspecified Status: Acute Assessment & Plan Estimated LOS: days patient wanting to leave but remains suicidal and unable to care for self. Sabotages help. Justification for Cont. Inpt. Suicidal and unable to care for self. Jm Aguilera MD Jul 14, 2017 12:52
[2017-07-14 13:26] LABS: ALKALINE PHOSPHATASE 55 U/L (45-117); ALT (GPT) 48 U/L (12-78); ANION GAP 5 MEQ/L (5-15); AST (GOT) 15 U/L (15-37); BICARBONATE 29.5 MEQ/L (21.0-32.0); BLOOD UREA NITROGEN 17 MG/DL (7-18); CHLORIDE 94 MEQ/L (98-107); GLOMERULAR FILTRATION RATE 81 ML/MIN (>89); HDL CHOLESTEROL 24.5 MG/DL (40.0-60.0); LDL CHOLESTEROL 92 MG/DL (0-99); POTASSIUM 3.3 MEQ/L (3.5-5.1); SODIUM (NA) 128 MEQ/L (136-145); TOTAL BILIRUBIN ADULT 0.5 MG/DL (0.2-1.0)
--- NOTE | 2017-07-14 13:45 | EKG ---
Date Performed: 07/14/2017 Time Performed: 08:56:16 PTAGE: 62 years EKG: Sinus rhythm NONSPECIFIC T-WAVE ABNORMALITY BORDERLINE ECG PREVIOUS TRACING : 02/12/2017 10.21 Since prior tracing, sinus rate is faster. DOCTOR: Blade Silver Interpretating Date/Time 07/14/2017 13:44:01
[2017-07-14 15:01] LABS: HEMOGLOBIN A1b 1.7 %; HEMOGLOBIN P3 3.6 %
[2017-07-14] MEDS ORDERED: POTASSIUM CHLORIDE 10 MEQ CONTROLLED RELEASE TAB PO ONE (15:45)
[2017-07-14 17:55] VITALS: BP 144/73; PULSE 73; RESP 18; TEMP 98.1; O2SAT 96
[2017-07-14] MEDS: PRAZOSIN HCL 5 MG CAP PO SCH (22:06)
[2017-07-14] MEDS: ATORVASTATIN 80 MG TAB PO SCH (22:07)
[2017-07-14] MEDS: AMITRIPTYLINE HCL 50 MG TAB PO SCH (22:07)
[2017-07-15] MEDS: LEVOTHYROXINE SODIUM 25 MCG TAB PO SCH (06:39)
[2017-07-15 06:59] VITALS: BP 141/68; PULSE 57; RESP 18; TEMP 98.4; O2SAT 93
[2017-07-15] MEDS: TIOTROPIUM BROMIDE 18 MCG INH INH SCH (08:20)
[2017-07-15] MEDS: BUDESONIDE-FORMOTEROL 160/4.5 MCG INHALER INH SCH ×2 (08:23→21:36)
[2017-07-15] MEDS: HYDROCHLOROTHIAZIDE 50 MG TAB PO SCH (08:23)
[2017-07-15] MEDS: PANTOPRAZOLE SOD 20 MG DELAYED RELEASE TAB PO SCH (08:23)
[2017-07-15] MEDS: POTASSIUM CHLORIDE 10 MEQ CONTROLLED RELEASE TAB PO SCH (08:23)
[2017-07-15] MEDS: MULTIVITAMIN TAB PO SCH (08:23)
[2017-07-15] MEDS: cloNIDine HCL 0.1 MG TAB PO SCH ×3 (08:23→17:54)
[2017-07-15] MEDS: ASPIRIN EC 81 MG TABEC PO SCH (08:23)
[2017-07-15] MEDS: VENLAFAXINE HCL XR 75 MG CAP PO SCH (08:23)
[2017-07-15 11:32] LABS: BICARBONATE 29.6 MEQ/L (21.0-32.0); POTASSIUM 4.2 MEQ/L (3.5-5.1)
[2017-07-15 12:24] VITALS: BP 138/78; PULSE 59
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
--- NOTE | 2017-07-15 15:36 | HHI.PR ---
Subjective Remarks For medical management Patient complains. He stated that most of his complaints are regards to psych medication. He stated that he wanted me to review his medication to make sure there are any adverse side effects with his psych medication. Otherwise he has no complaints. Dealt with patient's nurse. Objective Vitals Vital Signs Date Time Temp Pulse Resp B/P (MAP) Pulse Ox O2 Delivery O2 Flow Rate FiO2 07/15/17 12:24 59 138/78 (98) 07/15/17 06:59 98.4 57 18 141/68 (92) 93 07/14/17 17:55 98.1 73 18 144/73 (96) 96 I/O 07/14/17 07/14/17 07/14/17 07/15/17 07/15/17 07/15/17 06:59 14:59 22:59 06:59 14:59 22:59 Intake Total 720 ml Balance 720 ml Intake Oral 720 ml Result Diagram: 07/14/17 1053 07/15/17 1007 Objective Remarks GENERAL: in NAD SKIN: Warm and dry. HEAD: Normocephalic. EYES: No scleral icterus. No injection or drainage. NECK: Supple, trachea midline. No JVD or lymphadenopathy. CARDIOVASCULAR: Regular rate and rhythm without murmurs, gallops, or rubs. RESPIRATORY: Breath sounds equal bilaterally. No accessory muscle use. GASTROINTESTINAL: Abdomen soft, non-tender, nondistended. MUSCULOSKELETAL: No cyanosis, or edema. BACK: Nontender without obvious deformity. No CVA tenderness. Medications and IVs Current Medications Lorazepam (Ativan) 1 mg Q6H PRN PO MODERATE TO SEVERE ANXIETY; Start 07/13/17 at 10:15 Lorazepam (Ativan Inj) 1 mg Q6H PRN IM MODERATE TO SEVERE ANXIETY; Start at 10:15 Acetaminophen (Tylenol) 650 mg Q4H PRN PO Pain 1-5 or Temp >101F; Start at 10:15 Magnesium Hydroxide (Milk Of Magnesia Liq) 30 ml DAILY PRN PO CONSTIPATION; Start 07/13/17 at 10:15 Al Hydrox/Mg Hydrox/Simethicone (Mag-Al Plus Susp Liq) 30 ml Q6H PRN PO DYSPEPSIA; Start 07/13/17 at 10:15 Nicotine (Habitrol 21 Mg Patch.24 Hr) 1 patch DAILY T-DERMAL ; Start 07/14/17 at 09:00; Stop 07/14/17 at 09:00; Status DC Hydroxyzine HCl (Atarax) 50 mg Q6H PRN PO ANXIETY; Start 07/13/17 at 11:00 Miscellaneous Information 1 DAILY T-DERMAL ; Start 07/14/17 at 09:00; Stop at 09:00; Status DC Amitriptyline HCl (Elavil) 50 mg HS PO Last administered on 07/14/17 22:07; Start 07/13/17 at 21:00 Amlodipine Besylate (Norvasc) 10 mg DAILY PO Last administered on 07/15/17 08: 23; Start 07/13/17 at 11:00 Aspirin (Ecotrin Ec) 81 mg DAILY PO Last administered on 07/15/17 08:23; Start 07/13/17 at 11:00 Atorvastatin Calcium (Lipitor) 80 mg HS PO Last administered on 07/14/17 22:07 ; Start 07/13/17 at 21:00 Budesonide/ Formoterol Fumarate (Symbicort 160-4.5 Inh) 2 puff BID INH Last administered on 07/15/17 08:23; Start 07/13/17 at 12:00 Clonidine (Catapres) 0.1 mg TID PO Last administered on 07/15/17 12:25; Start 07/13/17 at 13:00 Hydrochlorothiazide (Hydrodiuril) 50 mg DAILY PO Last administered on 08:23; Start 07/13/17 at 11:00 Ipratropium [place] (Atrovent Hfa Inh) 2 puff BID INH ; Start 07/13/17 at 12:00; Stop 07/13/17 at 12:00; Status DC Levothyroxine Sodium (Synthroid) 25 mcg DAILY@06 PO Last administered on 06:39; Start 07/14/17 at 06:00 Multivitamins (Theragran) 1 tab DAILY PO Last administered on 07/15/17 08:23; Start 07/13/17 at 11:00 Potassium Chloride (KCl) 10 meq DAILY PO Last administered on 07/15/17 08:23; Start 07/13/17 at 11:00 Prazosin HCl (Minipress) 10 mg HS PO Last administered on 07/14/17 22:06; Start 07/13/17 at 21:00 Venlafaxine HCl (Effexor Xr) 150 mg DAILY PO Last administered on 07/15/17 08: 23; Start 07/13/17 at 11:00 Pantoprazole Sodium (Protonix) 20 mg DAILY PO Last administered on 07/15/17 08 :23; Start 07/13/17 at 11:00 Tiotropium [place] (Spiriva Inh) 18 mcg DAILY INH ; Start 07/13/17 at 13:00 Potassium Chloride (KCl) 30 meq ONCE ONCE PO Last administered on 07/14/17 16: 53; Start 07/14/17 at 15:45; Stop 07/14/17 at 15:46; Status DC A/P Problem List: (1) PTSD (post-traumatic stress disorder) ICD Code: F43.10 - Post-traumatic stress disorder, unspecified Status: Acute (2) COPD (chronic obstructive pulmonary disease) ICD Code: J44.9 - Chronic obstructive pulmonary disease, unspecified Status: Chronic (3) Hypothyroidism ICD Code: E03.9 - Hypothyroidism, unspecified Status: Chronic (4) HTN (hypertension) ICD Code: I10 - Essential (primary) hypertension Status: Chronic (5) Hyperlipidemia ICD Code: E78.5 - Hyperlipidemia, unspecified Status: Chronic Assessment and Plan Mr. aTy is 62 years old, with medical history inclusive of hypertension, hyperlipidemia, GERD, COPD, hypothyroid, thyroid cancer, PTSD, depression, cocaine use, and marijuana use. He reported having hepatitis C and having successfully been treated for it 3 years ago. He stated he is checked every 6 months since that time and and continues to have negative results. Mr. Tay was admitted to [facility] psychiatry for suicidal ideation. Per the medical record, he had the intention of using a firearm to kill himself. Dr. Aguilera consulted the hospitalist team for medical management of Mr. Tay's chronic conditions. PTSD -As per psychiatry. Nicotine addiction -Nicotine patch 21 mg daily. COPD -Stable -Spiriva 18 micrograms daily inhaled -Symbicort 2 puffs twice a day inhaled Hypertension -Clonidine 0.1 mg by mouth 3 times a day -Hydrochlorothiazide 50 mg by mouth daily -Amlodipine 10 mg by mouth daily BPH -Prazosin 10 mg by mouth daily at bedtime -PSA screen ordered Hyperlipidemia -Aspirin 81 mg by mouth daily -Atorvastatin 80 mg by mouth daily at bedtime Hyponatremia -Stable. Maybe secondary to dehydration along with high substance abuse. Patient is asymptomatic. Resolved. Medication reviewed will continue with current regimen. Discharge Planning Patient is medically stable will sign off. Reconsult PRN. Dealt with patient's nurse. Problem Qualifiers (1) COPD (chronic obstructive pulmonary disease): Qualified Codes: J43.9 - Emphysema, unspecified (2) Hypothyroidism: Qualified Codes: E03.9 - Hypothyroidism, unspecified (3) HTN (hypertension): Qualified Codes: I10 - Essential (primary) hypertension (4) Hyperlipidemia: Qualified Codes: E78.5 - Hyperlipidemia, unspecified Wandy Henson MD Jul 15, 2017 15:36
[2017-07-15 17:31] VITALS: BP 150/75; PULSE 81; RESP 18; TEMP 98.1; O2SAT 95
[2017-07-15] MEDS: AMITRIPTYLINE HCL 50 MG TAB PO SCH (21:35)
[2017-07-15] MEDS: ATORVASTATIN 80 MG TAB PO SCH (21:35)
[2017-07-15] MEDS: PRAZOSIN HCL 5 MG CAP PO SCH (21:35)
[2017-07-16 06:25] VITALS: BP 110/57; PULSE 65; RESP 17; TEMP 97.7; O2SAT 92
[2017-07-16] MEDS: LEVOTHYROXINE SODIUM 25 MCG TAB PO SCH (06:30)
[2017-07-16] MEDS: VENLAFAXINE HCL XR 75 MG CAP PO SCH (08:23)
[2017-07-16] MEDS: ASPIRIN EC 81 MG TABEC PO SCH (08:23)
[2017-07-16] MEDS: HYDROCHLOROTHIAZIDE 50 MG TAB PO SCH (08:23)
[2017-07-16] MEDS: POTASSIUM CHLORIDE 10 MEQ CONTROLLED RELEASE TAB PO SCH (08:23)
[2017-07-16] MEDS: MULTIVITAMIN TAB PO SCH (08:23)
[2017-07-16] MEDS: PANTOPRAZOLE SOD 20 MG DELAYED RELEASE TAB PO SCH (08:24)
[2017-07-16] MEDS: cloNIDine HCL 0.1 MG TAB PO SCH ×2 (08:24→12:08)
[2017-07-16] MEDS: TIOTROPIUM BROMIDE 18 MCG INH INH SCH (08:26)
[2017-07-16] MEDS: BUDESONIDE-FORMOTEROL 160/4.5 MCG INHALER INH SCH (08:26)
--- NOTE | 2017-07-16 10:13 | HHI.PYPN ---
Subjective Remarks Patient seen and examined with nursing coverage for Dr. Ott. Chart reviewed. Case discussed with nursing staff who reports that the patient had vivid, bizarre dreams overnight. On my examination today, the patient is somewhat discharge focused but endorses ongoing intermittent suicidal ideation. He doesn't like the Effexor, which he blames for his vivid dreams. He says he has done well with Prozac in the past and would like to switch. Denies side effects from medications otherwise. No physical complaints. Review of Systems Except as stated in HPI: all other systems reviewed are Neg Objective Alert: Yes [place]: Person, Place, Date, Situation Mood: Depressed Affect: Blunted Memory Intact: Comment (not formally assessed) Hallucinations: Other (no AVH) Delusions: No Delusion Type: Other (no delusions) Suicidal: Ideation (intermittent SI. No reported urge to hurt himself on the inpatient psychiatric unit) Homicidal: Ideation (no HI) Insight/Judgment Poor Remarks No motor abnormalities noted. Thought process linear. Labs Labs reviewed. Vitals/IOs Vital Signs Date Time Temp Pulse Resp B/P (MAP) Pulse Ox O2 Delivery O2 Flow Rate FiO2 07/16/17 06:25 97.7 65 17 110/57 (74) 92 07/13/17 09:51 Room Air Intake and Output 07/16/17 07/16/17 07/17/17 08:00 16:00 00:00 Intake Total 240 ml Balance 240 ml Assessment & Plan Problem List: (1) PTSD (post-traumatic stress disorder) ICD Codes: F43.10 - Post-traumatic stress disorder, unspecified Status: Acute Assessment & Plan Per patient preference, discontinue Effexor and replace with Prozac 20 mg daily starting tomorrow. Risks and benefits of this strategy discussed with the patient. Continue other psychotropics as ordered. Continue other medications and care as ordered. Justification for Cont. Inpt. Made changes Discharge Planning Per Jake Vaz MD Jul 16, 2017 10:13
[2017-07-16 12:08] VITALS: BP 101/54
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
[2017-07-17] MEDS ORDERED: FLUoxetine HCL 20 MG CAP PO SCH (09:00)
== END 2017-07-16 15:25 | disposition home or self-care (01) | DRG 882 ==
LOC: NEPD 11:03 → NEDA 07-13 10:09 → H260 07-13 10:30
PROVIDERS: ADMIT Psychiatry & Neurology Psychiatry; ATTEND Psychiatry & Neurology Psychiatry
DX: F43.10 Post-traumatic stress disorder, unspecified (principal); R45.851 Suicidal ideations; E87.1 Hypo-osmolality and hyponatremia; I10 Essential (primary) hypertension; J44.9 Chronic obstructive pulmonary disease, unspecified; K21.9 Gastro-esophageal reflux disease without esophagitis; F17.210 Nicotine dependence, cigarettes, uncomplicated; F12.90 Cannabis use, unspecified, uncomplicated; F14.90 Cocaine use, unspecified, uncomplicated; F32.9 Major depressive disorder, single episode, unspecified; N40.0 Benign prostatic hyperplasia without lower urinary tract symptoms; E78.5 Hyperlipidemia, unspecified; E89.0 Postprocedural hypothyroidism; E66.9 Obesity, unspecified; Z68.35 Body mass index [BMI] 35.0-35.9, adult; Z79.82 Long term (current) use of aspirin; Z85.850 Personal history of malignant neoplasm of thyroid; Z86.19 Personal history of other infectious and parasitic diseases
CPT/HCPCS: 80048; 80053; 80061; 80307; 82306; 82607; 83036; 84443; 85025; 93005; G0103